=== PATIENT | male | born 1975 | race African-American/Black ===

== ENCOUNTER 2018-11-26 11:45 | Emergency (ER) | payer OTHER ==
--- NOTE | 2018-11-26 12:34 | ER Document Report ---
ED Medical Screen (RME) - General Chief Complaint: Bloody Stools Stated Complaint: BLOOD IN STOOL Time Seen by Provider: 11/26/18 12:31 Mode of Arrival: Ambulatory Information source: Patient Notes: 43-year-old male presented to ED for complaint of blood in his stools x3 since Friday. He states there was a little bit on Friday and on a lot more each day. He states today that was a lot. Patient has a history of kidney cancer with part of his left kidney removed. He has had a aortic aneurysm that was not repaired just use medication and he had to have a history of high blood pressure . He is alert oriented respirations regular and unlabored speaking in full sentences walks with a even steady gait. He states he does not smoke drink or drugs and lives with his family. I have greeted and performed a rapid initial assessment of this patient. A comprehensive ED assessment and evaluation of the patient, analysis of test results and completion of medical decision making process will be conducted by an additional ED providers. TRAVEL OUTSIDE OF THE [place] IN LAST 30 DAYS: No - Related Data Allergies/Adverse Reactions: No Known Allergies Allergy (Verified 11/26/18 11:47) Home Medications: HCTZ. ZOLOFT. CYCLOBENAZAPRIL. IRON. LOSATRTAN. CETIRIZINE. DOXYCYCLINE. HYDROCHLORATHIAZIDE. VIT D3. ASA. PROETHAZINE. COLACE. TRAZADONE Past Medical History - Social History Chew tobacco use (# tins/day): No Frequency of alcohol use: None Drug Abuse: None - Past Medical History Cardiac Medical History: Reports: Hx Hypertension Renal/ Medical History: Denies: Hx Peritoneal Dialysis Past Surgical History: Reports: Hx Kidney (Renal Surgery) - left sided partial removal Physical Exam - Vital signs Vitals: Temp Pulse Resp BP Pulse Ox 97.7 F 78 16 146/96 H 97 11/26/18 11:50 11/26/18 11:50 11/26/18 11:50 11/26/18 11:50 11/26/18 11:50 Course - Vital Signs Vital signs: Temp Pulse Resp BP Pulse Ox 97.7 F 78 16 146/96 H 97 11/26/18 11:50 11/26/18 11:50 11/26/18 11:50 11/26/18 11:50 11/26/18 11:50
[2018-11-26 13:12] LABS: ABSOLUTE BASOPHILS # (AUTO) 0.1 10^3/uL (0.0-0.2); ABSOLUTE EOSINOPHILS # (AUTO) 0.1 10^3/uL (0.0-0.6); ABSOLUTE MONOCYTES (AUTO) 0.5 10^3/uL (0.1-1.4); ABSOLUTE NEUT (AUTO) 3.5 10^3/uL (1.7-8.2); BASOPHILS % (AUTO) 0.7 % (0-2); EOSINOPHILS % (AUTO) 1.9 % (0-6); HEMATOCRIT 47.3 % (37.9-51.0); LYMPHOCYTES % (AUTO) 41.6 % (13-45); MEAN CORPUSCULAR HEMOGLOBIN 30.1 pg (27.0-33.4); MEAN CORPUSCULAR HGB CONC 33.9 g/dL (32.0-36.0); MEAN CORPUSCULAR VOLUME 89 fl (80-97); MONOCYTES % (AUTO) 7.1 % (3-13); PLATELET COUNT 192 10^3/uL (150-450); RED BLOOD COUNT 5.33 10^6/uL (4.35-5.55); RED CELL DISTRIBUTION WIDTH 13.9 % (11.5-14.0); SEGMENTED NEUTROPHILS % (AUTO) 48.7 % (42-78); TOTAL CELLS COUNTED % (AUTO) 100 %; WHITE BLOOD COUNT 7.3 10^3/uL (4.0-10.5)
[2018-11-26 13:14] LABS: APPEARANCE,URINE CLEAR; BILIRUBIN,URINE NEGATIVE (NEGATIVE); COLOR,URINE YELLOW; GLUCOSE, URINE NEGATIVE (NEGATIVE); KETONES,URINE NEGATIVE (NEGATIVE); LEUKOCYTE ESTERASE,URINE NEGATIVE (NEGATIVE); NITRITE,URINE NEGATIVE (NEGATIVE); PROTEIN,URINE NEGATIVE (NEGATIVE); URINE SPECIFIC GRAVITY 1.008; UROBILINOGEN,URINE NEGATIVE mg/dL (<2.0)
[2018-11-26 13:35] LABS: ALANINE AMINOTRANSFERASE 28 U/L (21-72); ALBUMIN 4.4 g/dL (3.5-5.0); ALKALINE PHOSPHATASE 62 U/L (38-126); ANION GAP 6 (5-19); ASPARTATE AMINO TRANSFERASE 32 U/L (17-59); BILIRUBIN,DIRECT 0.2 mg/dL (0.0-0.4); BILIRUBIN,TOTAL 0.5 mg/dL (0.2-1.3); BLOOD UREA NITROGEN 17 mg/dL (7-20); CALCIUM 10.1 mg/dL (8.4-10.2); CARBON DIOXIDE 29 mmol/L (22-30); CHLORIDE 105 mmol/L (98-107); GLUCOSE 79 mg/dL (75-110); SODIUM 140.4 mmol/L (137-145); TOTAL PROTEIN 7.9 g/dL (6.3-8.2)
[2018-11-26] MEDS ORDERED: NORMAL SALINE 1000 ML 1,000 ML IV ONE (15:12)
[2018-11-26 16:40] LABS: INTERNATIONAL RATION (INR) 0.95; PROTHROMBIN TIME 13.1 SEC (11.4-15.4)
[2018-11-26 16:41] LABS: PARTIAL THROMBOPLASTIN TIME 31.8 SEC (23.5-35.8)
[2018-11-26] MEDS ORDERED: DIPHENHYDRAMINE HCL 50 MG/ML VIAL IV ONE (16:49)
[2018-11-26] MEDS ORDERED: METOCLOPRAMIDE HCL INJ/PF 10 MG/2 ML SDV IV ONE (16:49)
--- NOTE | 2018-11-26 16:57 | ER Document Report ---
ED General - General Chief Complaint: Bloody Stools Stated Complaint: BLOOD IN STOOL Time Seen by Provider: 11/26/18 12:31 Primary Care Provider: ALEKSANDRA CONNER MD [ACTIVE STAFF] - Follow up in 3-5 days [facility] [Primary Care Provider] - Follow up as needed Mode of Arrival: Ambulatory TRAVEL OUTSIDE OF THE [place] IN LAST 30 DAYS: No - HPI Notes: Patient is a 43-year-old male that presents to the emergency department for chief complaint of blood in his stool. Patient reports for the last 3 days he has had bright red blood in his stool. He states he has 2 formed bowel movements daily. Each 1 has had streaks of bright red blood on the paper and in the toilet bowl. He states the stool also appears bright red. He denies any maroon or black stools. He reports some mild diffuse abdominal pain that is intermittent and crampy in nature. He denies associated fevers, nausea and vomiting. He does report decreased oral intake because of not feeling well. Patient states since onset of the bloody stools he is also had a headache. He describes it as a throbbing pressure that has associated photophobia. The pain is located around his right parietal region. He does report history of migraines in the past but states he gets them very rarely. He states this headache was gradual in onset and has been constant for the last 3 days. He did get some symptomatic relief at home after taking Tylenol yesterday. He denies any associated vision changes, numbness, weakness and neck stiffness patient states he has had about 6 colonoscopies in his li fetime and all have been normal or shown small polyps. He denies history of GI bleeding in the past. He denies being on anticoagulation currently. Past Medical History: Kidney cancer, PE, hypertension Past Surgical History: Left partial nephrectomy, appendectomy Social History: Denies tobacco and alcohol use Family History: Reviewed and noncontributory for presenting illness Allergies: Reviewed, see documented allergy list. REVIEW OF SYSTEMS: CONSTITUTIONAL : No fever No chills No diaphoresis No recent illness EENT: No vision changes No congestion No sore throat CARDIOVASCULAR: No chest pain No palpitations RESPIRATORY: No shortness of breath No cough No difficulty breathing GASTROINTESTINAL: abdominal pain No nausea No vomiting No diarrhea Bright red blood in stool GENITOURINARY: No dysuria No hematuria No difficulty urinating MUSCULOSKELETAL: No back pain No leg pain No arm pain SKIN: No rashes No lesions LYMPHATIC: No swollen, enlarged glands. NEUROLOGICAL: No lightheadedness headache No weakness No paresthesias PSYCHIATRIC: No anxiety No depression PHYSICAL EXAMINATION: Vital signs reviewed, nursing noted reviewed. GENERAL: Well-appearing, well-nourished and in no acute distress. HEAD: Atraumatic, normocephalic. EYES: Eyes appear normal, extraocular movements intact, sclera anicteric, conjunctiva are normal. ENT: nares patent, oropharynx clear without exudates. Moist mucous membranes. NECK: Normal range of motion, supple without lymphadenopathy LUNGS: Breath sounds clear to auscultation bilaterally and equal. No wheezes rales or rhonchi. HEART: Regular rate and rhythm without murmurs ABDOMEN: Soft, mild right lateral abdominal tenderness, normoactive bowel sounds. No rebound, guarding, or rigidity. No masses appreciated. EXTREMITIES: Nontender, good range of motion, no pitting or edema. NEUROLOGICAL: No focal neurological deficits. Moves all extremities spontaneously Motor and sensory grossly intact on exam. PSYCH: Normal mood, normal affect. SKIN: Warm, Dry, normal turgor, no rashes or lesions noted on exposed skin - Related Data Allergies/Adverse Reactions: No Known Allergies Allergy (Verified 11/26/18 11:47) Home Medications: HCTZ. ZOLOFT. CYCLOBENAZAPRIL. IRON. LOSATRTAN. CETIRIZINE. DOXYCYCLINE. HYDROCHLORATHIAZIDE. VIT D3. ASA. PROETHAZINE. COLACE. TRAZADONE Past Medical History - General Information source: Patient - Social History Smoking Status: Never Smoker Chew tobacco use (# tins/day): No Frequency of alcohol use: None Drug Abuse: None Family History: Reviewed & Not Pertinent Patient has suicidal ideation: No Patient has homicidal ideation: No - Past Medical History Cardiac Medical History: Reports: Hx Hypertension Renal/ Medical History: Denies: Hx Peritoneal Dialysis Past Surgical History: Reports: Hx Kidney (Renal Surgery) - left sided partial removal Physical Exam - Vital signs Vitals: Temp Pulse Resp BP Pulse Ox 97.7 F 78 16 146/96 H 97 11/26/18 11:50 11/26/18 11:50 11/26/18 11:50 11/26/18 11:50 11/26/18 11:50 Course - Re-evaluation Re-evalutation: 11/26/18 16:57 Vitals reviewed per nursing notes reviewed. Patient's abdomen is soft with some mild right-sided tenderness. He is status post appendectomy. Patient has no leukocytosis. He appears well-hydrated with normal kidney function and no electrolyte derangement. He is not anemic and has a stable hemoglobin. Patient does have a history of renal cancer and had been advised to have frequent colonoscopies to screen for further cancer. With his current presentation of bloody stools without diarrhea fevers or emesis I am concerned for possible malignant mass causing the bleeding. CT scan will be performed of his abdomen and pelvis today. Patient was also recommended that he needs colonoscopy in the near future. 11/26/18 18:[address] scan shows collapse of the colon distally with some proximal air. Patient has been able to pass bowel movements daily and has passed gas in the ER. He does not have symptoms of obstruction to suggest a stricture. Likely this was peristalsis. His abdominal exam is soft he has no left lower quadrant tenderness, he is still mildly tender on the right side. Patient was encouraged to follow with GI for outpatient colonoscopy. He was extensively counseled on return precautions and told to have a low threshold to return to the emergency room if the bleeding is continuing or worsening. He is in agreement with this plan of care and stable at discharge Laboratory 11/26/18 11/26/18 11/26/18 12:55 12:55 12:55 WBC 7.3 RBC 5.33 Hgb 16.0 Hct 47.3 MCV 89 MCH 30.1 MCHC 33.9 RDW 13.9 Plt Count 192 Seg Neutrophils % 48.7 Lymphocytes % 41.6 Monocytes % 7.1 Eosinophils % 1.9 Basophils % 0.7 Absolute Neutrophils 3.5 Absolute Lymphocytes 3.0 Absolute Monocytes 0.5 Absolute Eosinophils 0.1 Absolute Basophils 0.1 PT INR APTT Sodium 140.4 Potassium 4.0 Chloride 105 Carbon Dioxide 29 Anion Gap 6 BUN 17 Creatinine 1.07 Est GFR ( Amer) > 60 Est GFR (Non-Af Amer) > 60 Glucose 79 Calcium 10.1 Total Bilirubin 0.5 Direct Bilirubin 0.2 Neonat Total Bilirubin Not Reportable Neonat Direct Bilirubin Not Reportable Neonat Indirect Bili Not Reportable AST 32 ALT 28 Alkaline Phosphatase 62 Total Protein 7.9 Albumin 4.4 Urine Color YELLOW Urine Appearance CLEAR Urine pH 6.0 Ur Specific [place] 1.008 Urine Protein NEGATIVE Urine Glucose (UA) NEGATIVE Urine Ketones NEGATIVE Urine Blood NEGATIVE Urine Nitrite NEGATIVE Urine Bilirubin NEGATIVE Urine Urobilinogen NEGATIVE Ur Leukocyte Esterase NEGATIVE Urine WBC (Auto) 1 Urine Mucus (Auto) RARE Urine Ascorbic Acid NEGATIVE Blood Type Antibody Screen 11/26/18 11/26/18 15:50 15:50 WBC RBC Hgb Hct MCV MCH MCHC RDW Plt Count Seg Neutrophils % Lymphocytes % Monocytes % Eosinophils % Basophils % Absolute Neutrophils Absolute Lymphocytes Absolute Monocytes Absolute Eosinophils Absolute Basophils PT 13.1 INR 0.95 APTT 31.8 Sodium Potassium Chloride Carbon Dioxide Anion Gap BUN Creatinine Est GFR ( Amer) Est GFR (Non-Af Amer) Glucose Calcium Total Bilirubin Direct Bilirubin Neonat Total Bilirubin Neonat Direct Bilirubin Neonat Indirect Bili AST ALT Alkaline Phosphatase Total Protein Albumin Urine Color Urine Appearance Urine pH Ur Specific [place] Urine Protein Urine Glucose (UA) Urine Ketones Urine Blood Urine Nitrite Urine Bilirubin Urine Urobilinogen Ur Leukocyte Esterase Urine WBC (Auto) Urine Mucus (Auto) Urine Ascorbic Acid Blood Type A POSITIVE Antibody Screen NEGATIVE Abdomen/Pelvis CT 11/26/18 16:24 IMPRESSION: 1. No definite CT findings to explain left lower quadrant abdominal pain. The sigmoid colon is very redundant. There is a segment of narrowed appearing sigmoid colon approximately 3 cm in length with gas-filled colon proximally. There is stool distally in the rectum. Although this is likely peristaltic bowel, stricture can have this appearance. Correlate for clinical history of relevant disorder such as inflammatory bowel disease related to stricture. This can be further evaluated by direct colonoscopic visualization if desired. 2. Nonobstructive bilateral nephrolithiasis. - Vital Signs Vital signs: Temp Pulse Resp BP Pulse Ox 97.7 F 78 16 146/96 H 97 11/26/18 11:50 11/26/18 11:50 11/26/18 11:50 11/26/18 11:50 11/26/18 11:50 - Laboratory Result Diagrams: 11/26/18 12:55 11/26/18 12:55 Discharge - Discharge Clinical Impression: Blood in stool, pan Condition: Stable Disposition: HOME, SELF-CARE Instructions: Rectal Bleeding, Unclear Cause ([facility]) Additional Instructions: Return to the emergency room if your bleeding continues or worsens please return to the emergency department if you have any worsening, or concern of your symptoms. Please return to the emergency department if you develop chest pain, difficulty breathing, severe abdominal pain, or ongoing vomiting. Please follow-up with your primary care physician in 2-3 days and any other recommended physicians. If prescribed, take all medications as directed. If you have any questions or concerns do not hesitate to return the emergency department for evaluation. Follow-up with Dr. Conner for reevaluation and likely colonoscopy. Forms: Return to Work Referrals: [facility] [Primary Care Provider] - Follow up as needed ALEKSANDRA CONNER MD [ACTIVE STAFF] - Follow up in 3-5 days
--- NOTE | 2018-11-26 18:08 | RADIOLOGY REPORT (SQ) ---
EXAM DESCRIPTION: CT ABD/PELVIS WITH IV ONLY COMPLETED DATE/TIME: 11/26/2018 5:21 pm REASON FOR STUDY: abdominal pain COMPARISON: None. TECHNIQUE: CT scan of the abdomen and pelvis performed using helical scanning technique with dynamic intravenous contrast injection. No oral contrast. Images reviewed with lung, soft tissue, and bone windows. Reconstructed coronal and sagittal MPR images reviewed. Delayed images for evaluation of the urinary system also acquired. All images stored on PACS. All CT scanners at this facility use dose modulation, iterative reconstruction, and/or weight based d osing when appropriate to reduce radiation dose to as low as reasonably achievable (ALARA). [facility]: Dose Right [facility]: CareDose [facility]: Dose Right [facility]: Teradose 4D [facility]: [employer]™ CONTRAST TYPE AND DOSE: contrast/concentration: Isovue 350.00 mg/ml; Total Contrast Delivered: 94.0 ml; Total Saline Delivered: 71.0 ml RENAL FUNCTION: None required. The patient is less than 50 years old. RADIATION DOSE: CT Rad equipment meets quality standard of care and radiation dose reduction techniq ues were employed. CTDIvol: 6.6 - 9.1 mGy. DLP: 833 mGy-cm.. LIMITATIONS: None. FINDINGS: LOWER CHEST: No significant findings. No nodules or infiltrates. LIVER: Normal size. No masses. No dilated ducts. SPLEEN: Normal size. No focal lesions. PANCREAS: No masses. No significant calcifications. No adjacent inflammation or peripancreatic fluid collections. Pancreatic duct not dilated. GALLBLADDER: No identified stones by CT criteria. No inflammatory changes to suggest cholecystitis. ADRENAL GLANDS: No significant masses or asymmetry. RIGHT KIDNEY AND URETER: No solid masses. Nonobstructive calculus of the superior pole. No hydron ephrosis or hydroureter. LEFT KIDNEY AND URETER: No solid masses. Tiny nonobstructive calculus of the inferior pole. No hy dronephrosis or hydroureter. AORTA AND VESSELS: No aneurysm. No dissection. Renal arteries, SMA, celiac without stenosis. RETROPERITONEUM: No retroperitoneal adenopathy, hemorrhage or masses. BOWEL AND PERITONEAL CAVITY: No masses or inflammatory changes. No free fluid or peritoneal masses. The sigmoid colon is very redundant. There is a segment of narrowed appearing sigmoid colon approxim ately 3 cm in length (series 3, image 68) with gas filled colon proximally. There is stool distally in the rectum. APPENDIX: Surgically absent. PELVIS: No mass. No free fluid. Normal bladder. ABDOMINAL WALL: No masses. No hernias. BONES: No significant or acute findings. OTHER: No other significant finding. IMPRESSION: 1. No definite CT findings to explain left lower quadrant abdominal pain. The sigmoid colon is very redundant. There is a segment of narrowed appearing sigmoid colon approximately 3 cm i n length with gas-filled colon proximally. There is stool distally in the rectum. Although this is likely peristaltic bowel, stricture can have this appearance. Correlate for clinical history of rele vant disorder such as inflammatory bowel disease related to stricture. This can be further evaluated by direct colonoscopic visualization if desired. 2. Nonobstructive bilateral nephrolithiasis. TECHNICAL DOCUMENTATION: JOB ID: [id number] Quality ID # [id number]: Final reports with documentation of one or more dose reduction techniques (e.g., Au tomated exposure control, adjustment of the mA and/or kV according to patient size, use of iterative reconstruction technique) 2010 [employer]- All Rights Reserved Reading location - IP/workstation name: [email or web address]
[2018-11-26 19:42] VITALS: BP 152/103
== END 2018-11-26 19:42 | disposition home or self-care (01) ==
LOC: ER 11:45
DX: R19.5 Other fecal abnormalities (principal); R10.9 Unspecified abdominal pain; R63.0 Anorexia; R51 Headache
CPT/HCPCS: 99284; 96361; 96374; 96375; 86900; 86901; 36415; 86850; 85025; 85610; 85730; 80053; 81001; 74177; J1200; J2765; J7030

== ENCOUNTER 2019-06-03 14:25 | Emergency (ER) | payer OTHER ==
[2019-06-03] MEDS ORDERED: ASPIRIN 81 MG TABLET, CHEWABLE PO ONE (15:16)
--- NOTE | 2019-06-03 15:17 | ER Document Report ---
ED Medical Screen (RME) - General Chief Complaint: Chest Wall Pain Stated Complaint: SIDE PAIN Time Seen by Provider: 06/03/19 15:14 Primary Care Provider: YESY PARRA [Primary Care Provider] - Follow up as needed Mode of Arrival: Ambulatory Information source: Patient Notes: 43-year-old male presented to ED for complaint of chest pain or shortness of breath he was sent over here by [facility] due to history of blood clots and kidney cancer they requested CTA blood work and chest pain work-up. He states he had the pain for 3 days. Patient is alert oriented and respirations regular and unlabored speaking in full sentences at this time. Orders have been started. I have greeted and performed a rapid initial assessment of this patient. A comprehensive ED assessment and evaluation of the patient, analysis of test results and completion of medical decision making process will be conducted by an additional ED providers. TRAVEL OUTSIDE OF THE [place] IN LAST 30 DAYS: No - Related Data Allergies/Adverse Reactions: No Known Allergies Allergy (Verified 06/03/19 15:07) Past Medical History - Social History Chew tobacco use (# tins/day): No Frequency of alcohol use: None Drug Abuse: None - Past Medical History Cardiac Medical History: Reports: Hx Hypertension Neurological Medical History: Reports: Hx Migraine Endocrine Medical History: Reports: Hx Diabetes Mellitus Type 2 Renal/ Medical History: Denies: Hx Peritoneal Dialysis Past Surgical History: Reports: Hx Kidney (Renal Surgery) - micro-disection of left kidney Physical Exam - Vital signs Vitals: Temp Pulse Resp BP Pulse Ox 97.8 F 66 18 157/95 H 98 06/03/19 15:00 06/03/19 15:00 06/03/19 15:00 06/03/19 15:00 06/03/19 15:00 Course - Vital Signs Vital signs: Temp Pulse Resp BP Pulse Ox 97.8 F 66 18 157/95 H 98 06/03/19 15:00 06/03/19 15:00 06/03/19 15:00 06/03/19 15:00 06/03/19 15:00 Doctor's Discharge - Discharge Referrals: [facility],YESY [Primary Care Provider] - Follow up as needed
[2019-06-03 16:05] LABS: ABSOLUTE EOSINOPHILS # (AUTO) 0.1 10^3/uL (0.0-0.6); ABSOLUTE LYMPHOCYTES (AUTO) 3.4 10^3/uL (0.5-4.7); ABSOLUTE MONOCYTES (AUTO) 0.6 10^3/uL (0.1-1.4); ABSOLUTE NEUT (AUTO) 3.7 10^3/uL (1.7-8.2); BASOPHILS % (AUTO) 0.2 % (0-2); EOSINOPHILS % (AUTO) 1.1 % (0-6); HEMATOCRIT 46.1 % (37.9-51.0); HEMOGLOBIN 15.6 g/dL (13.5-17.0); LYMPHOCYTES % (AUTO) 43.8 % (13-45); MEAN CORPUSCULAR HEMOGLOBIN 29.6 pg (27.0-33.4); MEAN CORPUSCULAR HGB CONC 33.9 g/dL (32.0-36.0); MEAN CORPUSCULAR VOLUME 88 fl (80-97); MONOCYTES % (AUTO) 7.5 % (3-13); PLATELET COUNT 207 10^3/uL (150-450); RED BLOOD COUNT 5.27 10^6/uL (4.35-5.55); RED CELL DISTRIBUTION WIDTH 13.5 % (11.5-14.0); SEGMENTED NEUTROPHILS % (AUTO) 47.4 % (42-78); TOTAL CELLS COUNTED % (AUTO) 100 %; WHITE BLOOD COUNT 7.8 10^3/uL (4.0-10.5)
[2019-06-03 16:11] LABS: INTERNATIONAL RATION (INR) 0.98; PARTIAL THROMBOPLASTIN TIME 30.8 SEC (23.5-35.8)
[2019-06-03 16:20] LABS: ALBUMIN 4.3 g/dL (3.5-5.0); ALKALINE PHOSPHATASE 70 U/L (38-126); ANION GAP 8 (5-19); ASPARTATE AMINO TRANSFERASE 34 U/L (17-59); BILIRUBIN,TOTAL 0.4 mg/dL (0.2-1.3); BLOOD UREA NITROGEN 15 mg/dL (7-20); CALCIUM 9.7 mg/dL (8.4-10.2); CARBON DIOXIDE 28 mmol/L (22-30); CHLORIDE 103 mmol/L (98-107); CREATINE KINASE 286 U/L (55-170); GLUCOSE 96 mg/dL (75-110); POTASSIUM 3.9 mmol/L (3.6-5.0); TOTAL PROTEIN 7.7 g/dL (6.3-8.2)
[2019-06-03] MEDS ORDERED: MORPHINE SULFATE 10 MG/ML INJ IV ONE (16:21)
--- NOTE | 2019-06-03 16:22 | ER Document Report ---
ED General Pain - General Chief Complaint: Chest Wall Pain Stated Complaint: SIDE PAIN Time Seen by Provider: 06/03/19 15:14 Primary Care Provider: [facility] [Primary Care Provider] - Follow up as needed Mode of Arrival: Ambulatory TRAVEL OUTSIDE OF THE [place] IN LAST 30 DAYS: No - HPI Patient complains to provider of: cp/sob Onset: Other - Pt. with 3 day h/o L-sided CP and shortness of breath. He has a h/o PE but is currently not on blood thinners. He went to earlier this am and was sent here for further evaluation - Related Data Allergies/Adverse Reactions: No Known Allergies Allergy (Verified 06/03/19 15:07) Past Medical History - General Information source: Patient - Social History Smoking Status: Never Smoker Chew tobacco use (# tins/day): No Frequency of alcohol use: None Drug Abuse: None Family History: Reviewed & Not Pertinent Patient has suicidal ideation: No Patient has homicidal ideation: No - Past Medical History Cardiac Medical History: Reports: Hx Hypertension Neurological Medical History: Reports: Hx Migraine Endocrine Medical History: Reports: Hx Diabetes Mellitus Type 2 Renal/ Medical History: Denies: Hx Peritoneal Dialysis Past Surgical History: Reports: Hx Kidney (Renal Surgery) - micro-disection of left kidney Review of Systems - Review of Systems Constitutional: No symptoms reported EENT: No symptoms reported Cardiovascular: See HPI, Chest pain Respiratory: See HPI, Short of breath Gastrointestinal: No symptoms reported Musculoskeletal: No symptoms reported Neurological/Psychological: No symptoms reported -: Yes All other systems reviewed and negative Physical Exam - Vital signs Vitals: Temp Pulse Resp BP Pulse Ox 97.8 F 66 18 157/95 H 98 06/03/19 15:00 06/03/19 15:00 06/03/19 15:00 06/03/19 15:00 06/03/19 15:00 - General General appearance: Appears well In distress: None - Respiratory Respiratory status: No respiratory distress Chest status: Tender - there is min TTP of the L anterior CW diffusely Breath sounds: Normal - Cardiovascular Rhythm: Regular Heart sounds: Normal auscultation Murmur: No - Abdominal Inspection: Normal Distension: No distension Bowel sounds: Normal Tenderness: Nontender Organomegaly: No organomegaly - Extremities General upper extremity: Normal inspection General lower extremity: Normal inspection - Neurological Neuro grossly intact: Yes Cognition: Normal Orientation: AAOx4 Course - Re-evaluation Re-evalutation: 06/03/19 17:50 Pt. feels much better at time of d/c -- denies CP, SOB. Expressed desire to go home with - Vital Signs Vital signs: Temp Pulse Resp BP Pulse Ox 97.8 F 66 15 146/106 H 98 06/03/19 15:00 06/03/19 15:00 06/03/19 16:30 06/03/19 16:16 06/03/19 16:30 - Laboratory Result Diagrams: 06/03/19 15:35 06/03/19 15:35 Laboratory results interpreted by me: 06/03/19 15:35 Creatine Kinase 286 H - Diagnostic Test Radiology reviewed: Reports reviewed - CTA- neg for PE; cxr- neg - EKG Interpretation by Me EKG shows normal: Sinus rhythm Rate: Normal Rhythm: NSR - nsr without acute change Discharge - Discharge Clinical Impression: Chest pain Qualifiers: Chest pain type: unspecified Qualified Code(s): R07.9 - Chest pain, unspecified Condition: Stable Disposition: HOME, SELF-CARE Additional Instructions: rest, take meds as prescribed, return if worse Prescriptions: Tramadol HCl [Ultram] 50 mg PO BID #14 tablet Referrals: [facility] [Primary Care Provider] - Follow up as needed
[2019-06-03 16:32] LABS: APPEARANCE,URINE CLEAR; BILIRUBIN,URINE NEGATIVE (NEGATIVE); COLOR,URINE YELLOW; GLUCOSE, URINE NEGATIVE (NEGATIVE); KETONES,URINE NEGATIVE (NEGATIVE); LEUKOCYTE ESTERASE,URINE NEGATIVE (NEGATIVE); NITRITE,URINE NEGATIVE (NEGATIVE); PROTEIN,URINE NEGATIVE (NEGATIVE); UROBILINOGEN,URINE NEGATIVE mg/dL (<2.0)
[2019-06-03 16:48] LABS: CREATINE KINASE MB 0.86 ng/mL (<4.55); NT PRO BNP < 11 pg/mL (<125); TROPONIN I < 0.012 ng/mL
--- NOTE | 2019-06-03 17:14 | RADIOLOGY REPORT (SQ) ---
EXAM DESCRIPTION: CTA CHEST COMPLETED DATE/TIME: 06/03/2019 4:50 pm REASON FOR STUDY: chest pain hx clots and kidney cancer COMPARISON: None. TECHNIQUE: CT scan of the chest performed using helical scanning technique with dynamic intravenous contrast injection. Images reviewed with lung, soft tissue and bone windows. Reconstructed coronal and sagittal MPR images reviewed. Additional 3 dimensional post-processing performed to develop Maximal Intensity Projection images (IA P). All images stored on PACS. All CT scanners at this facility use dose modulation, iterative reconstruction, and/or weight based d osing when appropriate to reduce radiation dose to as low as reasonably achievable (ALARA). [facility]: Dose Right [facility]: CareDose [facility]: Dose Right [facility]: Teradose 4D [facility]: PFI Acquisition CONTRAST TYPE AND DOSE: 79 mL Omnipaque 350- low osmolar. Contrast bolus adequate for pulmonary arteries and aorta. RENAL FUNCTION: BUN 15 creatinine 1.13 RADIATION DOSE: . LIMITATIONS: None. FINDINGS: LUNGS AND PLEURA: No masses, infiltrates, or pneumothorax. No pleural effusions or pleura l calcifications. AORTA AND GREAT VESSELS: No aneurysm. No dissection. HEART: No pericardial effusion. No significant coronary artery calcifications. PULMONARY ARTERIES: No emboli visualized in the main pulmonary arteries or the segmental branches. HILAR AND MEDIASTINAL STRUCTURES: No identified masses or abnormal nodes. HARDWARE: None in the chest. UPPER ABDOMEN: No significant findings. Limited exam. THYROID AND OTHER SOFT TISSUES: Right lobe of thyroid gland is enlarged and heterogeneous. BONES: No acute or significant finding. 3D MIPS: Confirm above findings. OTHER: No other significant finding. IMPRESSION: 1. There is no pulmonary embolus. There is no aortic aneurysm or dissection. 2. Enlarged right lobe of the thyroid gland. Recommend thyroid ultrasound. COMMENT: Quality ID # 436: Final reports with documentation of one or more dose reduction techniques (e.g., Automated exposure control, adjustment of the mA and/or kV according to patient size, use of iterative reconstruction technique) TECHNICAL DOCUMENTATION: JOB ID: [id number] [employer]- All Rights Reserved Reading location - IP/workstation name: [email or web address]
--- NOTE | 2019-06-03 17:25 | RADIOLOGY REPORT (SQ) ---
EXAM DESCRIPTION: CHEST 2 VIEWS COMPLETED DATE/TIME: 06/03/2019 3:54 pm REASON FOR STUDY: chest pain hx clots and kidney cancer COMPARISON: PA and lateral views of the chest from 03/15/2019. EXAM PARAMETERS: NUMBER OF VIEWS: two views TECHNIQUE: Digital Frontal and Lateral radiographic views of the chest acquired. RADIATION DOSE: NA LIMITATIONS: none FINDINGS: LUNGS AND PLEURA: No consolidation, pleural effusion or pneumothorax. MEDIASTINUM AND HILAR STRUCTURES: No mediastinal or hilar contour abnormality. HEART AND VASCULAR STRUCTURES: The cardiac silhouette and pulmonary vasculature are within normal mckeon its. BONES: No acute findings. HARDWARE: None. OTHER: No other finding. IMPRESSION: No acute cardiopulmonary process. TECHNICAL DOCUMENTATION: JOB ID: [id number] [employer]- All Rights Reserved Reading location - IP/workstation name: [email or web address]
[2019-06-03 18:12] VITALS: BP 150/96
--- NOTE | 2019-06-03 20:18 | EKG REPORT ---
SEVERITY:- NORMAL ECG - SINUS RHYTHM : Confirmed by: Irma Green MD 03-Jun-2019 20:18:00
== END 2019-06-03 18:12 | disposition home or self-care (01) ==
LOC: ER 14:25
DX: R07.89 Other chest pain (principal); R06.02 Shortness of breath; I10 Essential (primary) hypertension; E11.9 Type 2 diabetes mellitus without complications; Z86.711 Personal history of pulmonary embolism
CPT/HCPCS: 93005; 99284; 96374; 36415; 82553; 82550; 83735; 85025; 85610; 85730; 80053; 81001; 84484; 83880; 71046; 71275; 93010; J2270

== ENCOUNTER 2019-06-10 09:37 | Emergency (ER) | payer OTHER ==
[2019-06-10 10:14] LABS: APPEARANCE,URINE CLEAR; BILIRUBIN,URINE NEGATIVE (NEGATIVE); COLOR,URINE YELLOW; GLUCOSE, URINE NEGATIVE (NEGATIVE); KETONES,URINE NEGATIVE (NEGATIVE); LEUKOCYTE ESTERASE,URINE NEGATIVE (NEGATIVE); NITRITE,URINE NEGATIVE (NEGATIVE); PROTEIN,URINE NEGATIVE (NEGATIVE); URINE SPECIFIC GRAVITY 1.027
--- NOTE | 2019-06-10 11:16 | ER Document Report ---
ED Medical Screen (RME) - General Chief Complaint: Back Pain Stated Complaint: LOWER BACK PAIN Time Seen by Provider: 06/10/19 11:02 Primary Care Provider: YESY PARRA [Primary Care Provider] - Follow up as needed Notes: Patient is a 43-year-old male with a history of pulmonary embolism and a right kidney tumor who presents to the emergency department with a chief complaint of the left "side" pain. Patient reports he was seen here on June 03 for the same. Patient reports at that time he was having some shortness of breath. Patient reports his testing was negative. Patient reports he was given Toradol and a muscle relaxer which he has been using but his pain is gotten worse. Patient reports he is having left side pain that radiates into the left flank. Patient reports he does have a history of a kidney tumor on the right side that was removed years ago with surgery. Patient reports he is having urinary frequency. Patient denies fever or abdominal pain. Patient denies injury, recent heavy lifting or fall. Patient states he is not currently on blood thinners but does take a baby aspirin daily. TRAVEL OUTSIDE OF THE [place] IN LAST 30 DAYS: No - Related Data Allergies/Adverse Reactions: No Known Allergies Allergy (Verified 06/10/19 09:50) Past Medical History - Social History Chew tobacco use (# tins/day): No Frequency of alcohol use: Occasional Drug Abuse: None - Past Medical History Cardiac Medical History: Reports: Hx Hypertension Neurological Medical History: Reports: Hx Migraine Endocrine Medical History: Reports: Hx Diabetes Mellitus Type 2 Renal/ Medical History: Denies: Hx Peritoneal Dialysis Past Surgical History: Reports: Hx Kidney (Renal Surgery) - micro-disection of left kidney Physical Exam - Vital signs Vitals: Temp Pulse Resp BP Pulse Ox 98.5 F 71 16 126/88 H 97 06/10/19 09:43 06/10/19 09:43 06/10/19 09:43 06/10/19 09:43 06/10/19 09:43 Course - Re-evaluation Re-evalutation: 06/10/19 11:16 I have greeted and performed a rapid initial assessment of this patient. A comprehensive ED assessment and evaluation of the patient, analysis of test results and completion of the medical decision making process will be conducted by additional ED providers. - Vital Signs Vital signs: Temp Pulse Resp BP Pulse Ox 98.5 F 71 16 126/88 H 97 06/10/19 09:43 06/10/19 09:43 06/10/19 09:43 06/10/19 09:43 06/10/19 09:43 - Laboratory Laboratory results interpreted by me: 06/10/19 10:02 Urine Urobilinogen 2.0 H Urine Ascorbic Acid 40 H Doctor's Discharge - Discharge Referrals: [facility] [[facility]] - Follow up as needed
[2019-06-10 11:51] LABS: ABSOLUTE EOSINOPHILS # (AUTO) 0.1 10^3/uL (0.0-0.6); ABSOLUTE LYMPHOCYTES (AUTO) 2.8 10^3/uL (0.5-4.7); ABSOLUTE MONOCYTES (AUTO) 0.4 10^3/uL (0.1-1.4); ABSOLUTE NEUT (AUTO) 2.5 10^3/uL (1.7-8.2); BASOPHILS % (AUTO) 0.4 % (0-2); EOSINOPHILS % (AUTO) 1.4 % (0-6); HEMATOCRIT 46.8 % (37.9-51.0); HEMOGLOBIN 16.1 g/dL (13.5-17.0); LYMPHOCYTES % (AUTO) 48.8 % (13-45); MEAN CORPUSCULAR HEMOGLOBIN 30.4 pg (27.0-33.4); MEAN CORPUSCULAR HGB CONC 34.3 g/dL (32.0-36.0); MEAN CORPUSCULAR VOLUME 89 fl (80-97); MONOCYTES % (AUTO) 6.8 % (3-13); PLATELET COUNT 172 10^3/uL (150-450); RED BLOOD COUNT 5.29 10^6/uL (4.35-5.55); RED CELL DISTRIBUTION WIDTH 13.5 % (11.5-14.0); SEGMENTED NEUTROPHILS % (AUTO) 42.6 % (42-78); TOTAL CELLS COUNTED % (AUTO) 100 %; WHITE BLOOD COUNT 5.8 10^3/uL (4.0-10.5)
[2019-06-10] MEDS ORDERED: HYDROCODONE/ACETAMINOPHEN 5-325 MG TABLET PO ONE (12:06)
[2019-06-10 12:12] LABS: ALBUMIN 4.5 g/dL (3.5-5.0); ALKALINE PHOSPHATASE 64 U/L (38-126); ANION GAP 9 (5-19); ASPARTATE AMINO TRANSFERASE 38 U/L (17-59); BILIRUBIN,DIRECT 0.1 mg/dL (0.0-0.4); BILIRUBIN,TOTAL 0.4 mg/dL (0.2-1.3); BLOOD UREA NITROGEN 15 mg/dL (7-20); CALCIUM 9.6 mg/dL (8.4-10.2); CARBON DIOXIDE 31 mmol/L (22-30); CHLORIDE 100 mmol/L (98-107); GLUCOSE 120 mg/dL (75-110); POTASSIUM 3.9 mmol/L (3.6-5.0); TOTAL PROTEIN 7.8 g/dL (6.3-8.2)
--- NOTE | 2019-06-10 12:52 | ER Document Report ---
ED General - General Chief Complaint: Back Pain Stated Complaint: LOWER BACK PAIN Time Seen by Provider: 06/10/19 11:02 Primary Care Provider: YENNY GALLEGOS MD [DANIELA ACKERMAN] - Follow up as needed [facility] [Primary Care Provider] - Follow up as needed Mode of Arrival: Ambulatory Information source: Patient TRAVEL OUTSIDE OF THE [place] IN LAST 30 DAYS: No - HPI Notes: 43-year-old male with a history of pulmonary embolism and a right kidney tumor in 2016 who presents to the emergency department with a chief complaint of the left "side" pain. Patient reports he was seen here on June 03 2019 for the same complaint but there was a concern for PE, workup was negative. . Patient reports he was given Toradol and a muscle relaxer which he has been using but his pain is gotten worse. Patient reports he is having left side pain that radiates into the left flank. Patient reports he does have a history of a kidney tumor on the right side that was removed years ago with surgery. Patient reports he is having urinary frequency. Patient denies fever or abdominal pain. Patient denies injury, recent heavy lifting or fall. Patient states he is not currently on blood thinners but does take a baby aspirin daily.Denies fevers, chills, chest pain,palpitations, shortness of breath, dyspnea, vomiting, diarrhea, abdominal pain, hematuria,blurred vision, double vision, loss of vision, speech changes, LH, dizziness, syncope, headaches, wheezing, ST, URI, neck pain, weakness, bowel or bladder dysfunction, saddle anesthesia, numbness or tingling in bilateral upper or lower extremities equally, muscle paralysis, w eakness in bilateral upper or lower extremities equally or rash. - Related Data Allergies/Adverse Reactions: No Known Allergies Allergy (Verified 06/10/19 09:50) Past Medical History - General Information source: Patient, Relative - Social History Smoking Status: Never Smoker Chew tobacco use (# tins/day): No Frequency of alcohol use: Occasional Drug Abuse: None Family History: Reviewed & Not Pertinent Patient has suicidal ideation: No Patient has homicidal ideation: No - Past Medical History Cardiac Medical History: Reports: Hx Hypertension Neurological Medical History: Reports: Hx Migraine Endocrine Medical History: Reports: Hx Diabetes Mellitus Type 2 Renal/ Medical History: Denies: Hx Peritoneal Dialysis Past Surgical History: Reports: Hx Kidney (Renal Surgery) - micro-disection of left kidney Review of Systems - Review of Systems Constitutional: No symptoms reported EENT: No symptoms reported Cardiovascular: No symptoms reported Respiratory: No symptoms reported Gastrointestinal: See HPI Genitourinary: No symptoms reported Male Genitourinary: No symptoms reported Musculoskeletal: No symptoms reported Skin: No symptoms reported Hematologic/Lymphatic: No symptoms reported Neurological/Psychological: No symptoms reported Physical Exam - Vital signs Vitals: Temp Pulse Resp BP Pulse Ox 98.5 F 71 16 126/88 H 97 06/10/19 09:43 06/10/19 09:43 06/10/19 09:43 06/10/19 09:43 06/10/19 09:43 - Notes Notes: PHYSICAL EXAMINATION:reviewed vital signs by RN GENERAL: Well-appearing, well-nourished and in no acute distress. HEAD: Atraumatic, normocephalic. EYES: Pupils equal round and reactive to light, extraocular movements intact, sclera anicteric, conjunctiva are normal. ENT: Nares patent, oropharynx clear without exudates. Moist mucous membranes. NECK: Normal range of motion, supple without lymphadenopathy LUNGS: Breath sounds clear to auscultation bilaterally and equal. No wheezes rales or rhonchi. HEART: Regular rate and rhythm without murmurs ABDOMEN: Soft, , nondistended abdomen. No guarding, no rebound. No masses appreciated. Left flank pain, left upper quadrant pain Musculoskeletal: Normal range of motion, no pitting or edema. No cyanosis. NEUROLOGICAL: Cranial nerves grossly intact. Normal speech, normal gait. Normal sensory, motor exams PSYCH: Normal mood, normal affect. SKIN: Warm, Dry, normal turgor, no rashes or lesions noted. Course - Re-evaluation Re-evalutation: 06/10/19 14:03 Afebrile, vitals stable, in mild distress. Nurse's notes reviewed. Renal ultrasound shows a 6 mm nonobstructive stone in left kidney. CBC negative for leukocytosis or anemia, CMP negative for hepatic or renal dysfunction, thyroid is 1.94. Patient was concerned about having thyroid mass, and previous CTA, did note date enlargement of his thyroid, ultrasound of his thyroid showed multiple right-sided thyroid nodules. The largest measures 3.9 x 2.6 x 3.1 cm. This corresponds to a TR for lesion and a fine-needle aspirate is recommended. The other 2 nodules corresponding to T3 lesions. Based on size continued surveillance is recommended. CMP negative for hepatic or renal dysfunction, no electrolyte disturbances. patient already has an established urologist in [place] due to having a right renal tumor resection in 2016, he does see him annually. A advised to follow-up with urologist regarding 6 mm nonobstructing renal stone. Will start patient on Flomax, ciprofloxacin, hydrocodone and Zofran for management of renal stone. Advised to increase oral hydration. After performing a Medical Screening Examination, I estimate there is LOW risk for ACUTE APPENDICITIS, BOWEL OBSTRUCTION, ACUTE CHOLECYSTITIS, PERFORATED DIVERTICULITIS, INCARCERATED HERNIA, PANCREATITIS, TESTICULAR TORSION or PERFORATED ULCER, thus I consider the discharge disposition reasonable. Also, there is no evidence or peritonitis, sepsis, or toxicity. I have reevaluated this patient multiple times and no significant life threatening changes are noted. The patient and I have discussed the diagnosis and risks, and we agree with discharging home with close follow-up with the understanding that symptoms and presentations can change. We also discussed returning to the Emergency Department immediately if new or worsening symptoms occur. We have discussed the symptoms which are most concerning (e.g., bloody stool, fever, changing or worsening pain, intractable vomiting - standard verbal up date) that necessitate immediate return. - Vital Signs Vital signs: Temp Pulse Resp BP Pulse Ox 98.5 F 71 16 126/88 H 97 06/10/19 09:43 06/10/19 09:43 06/10/19 09:43 06/10/19 09:43 06/10/19 09:43 - Laboratory Result Diagrams: 06/10/19 11:39 06/10/19 11:39 Laboratory results interpreted by me: 06/10/19 06/10/19 06/10/19 10:02 11:39 11:39 Lymph % (Auto) 48.8 H Carbon Dioxide 31 H Glucose 120 H Urine Urobilinogen 2.0 H Urine Ascorbic Acid 40 H Discharge - Discharge Clinical Impression: Left renal stone, Thyroid nodule Condition: Stable Disposition: HOME, SELF-CARE Instructions: Kidney Stone ([facility]), Pain Medication Injection ([facility]), Low Back Pain ([facility]), Oral Narcotic Medication ([facility]) Additional Instructions: Do not drive, drink or operate heavy machinery while taking medication cause sedation or impairment of cognitive function. Please take stool softeners to prevent constipation while taking hydrocodone's. Take medication as directed. If you experience any worsening symptoms, fever, weakness, severe pain. Please follow-up with urologist that you have [facility] established with for further evaluation and management of your renal stone. Please follow-up with your primary care provider for further evaluation of thyroid for fine-needle aspiration biopsy your thyroid is normal. Return immediately for any new or worsening symptoms. Follow up with primary care provider, call tomorrow to make followup appointment. Prescriptions: Hydrocodone/Acetaminophen [[place] 5-325 Tablet] 1 each PO Q6HP PRN #12 tablet PRN Reason: Ciprofloxacin HCl [Cipro 500 mg Tablet] 500 mg PO BID #20 tablet Tamsulosin HCl [Flomax 0.4 mg Cap.sr] 0.4 mg PO DAILY #7 cap.sr.24h Ondansetron [Zofran Odt 4 mg Tablet] 1 - 2 tab PO Q4H PRN #15 tab.rapdis PRN Reason: For Nausea/Vomiting Referrals: [facility] [Primary [facility]] - Follow up as needed YENNY GALLEGOS MD [DANIELA ACKERMAN] - Follow up as needed
--- NOTE | 2019-06-10 13:18 | RADIOLOGY REPORT (SQ) ---
EXAM DESCRIPTION: U/S RETROPERITON (RENAL/AORTA) COMPLETED DATE/TIME: 06/10/2019 12:41 pm REASON FOR STUDY: left flank pain, urinary frequency COMPARISON: None. TECHNIQUE: Dynamic and static grayscale images acquired of the kidneys and bladder and recorded on P ACS. Additional selected color Doppler and spectral images recorded. LIMITATIONS: None. FINDINGS: RIGHT KIDNEY: Normal size. Normal echogenicity. No solid or suspicious masses. No hydronep hrosis. Upper pole nonobstructing stone measuring 6 mm. LEFT KIDNEY: Normal size. Normal echogenicity. No solid or suspicious masses. Lower pole cyst measu ring 1.2 cm. No hydronephrosis. No calcifications. BLADDER: No masses. OTHER FINDINGS: No other significant finding. IMPRESSION: No hydronephrosis. Nonobstructing right upper pole 6 mm stone. TECHNICAL DOCUMENTATION: JOB ID: [id number] [employer]- All Rights Reserved Reading location - IP/workstation name: [email or web address]
[2019-06-10] MEDS ORDERED: KETOROLAC TROMETHAMINE INJ/PF 30 MG/1 ML SDV IV ONE (14:10)
--- NOTE | 2019-06-10 14:26 | RADIOLOGY REPORT (SQ) ---
EXAM DESCRIPTION: U/S THYROID/SFT TISS HD NECK COMPLETED DATE/TIME: 06/10/2019 2:07 pm REASON FOR STUDY: abnormal thyroid on scan COMPARISON: CT chest dated 06/03/2019 TECHNIQUE: Dynamic and static hernandez-scale images acquired of the thyroid gland. Selected additional c olor/power Doppler images recorded. All images stored to PACS. LIMITATIONS: None. FINDINGS: RIGHT LOBE: Normal size. The right lobe is heterogeneous in echotexture. There are multi ple solid nodules. The nodules are Iso to hyperechoic. The largest measures 3.9 x 2.6 x 3.1 cm. Al l appear to be wider than tall. LEFT LOBE: Normal size. Homogeneous echotexture. No cystic or solid masses. ISTHMUS: Normal size. Homogeneous echotexture. No cystic or solid masses. OTHER: No other significant finding. IMPRESSION: Multiple right-sided thyroid nodules. The largest measures 3.9 x 2.6 x 3.1 cm. This co rresponds to a TR 4 lesion and FNA is recommended. The other 2 nodules correspond to TR 3 lesions. Based on size continued surveillance is recommended. TECHNICAL DOCUMENTATION: JOB ID: [id number] [employer]- All Rights Reserved Reading location - IP/workstation name: [email or web address]
[2019-06-10] MEDS ORDERED: KETOROLAC TROMETHAMINE 60 MG/2 ML SDV ONE (15:27)
[2019-06-10] MEDS ORDERED: KETOROLAC TROMETHAMINE 60 MG/2 ML SDV IM ONE (15:28)
[2019-06-10 15:50] VITALS: BP 139/99
== END 2019-06-10 15:50 | disposition home or self-care (01) ==
LOC: ER 09:37
DX: N20.0 Calculus of kidney (principal); E04.1 Nontoxic single thyroid nodule; M54.5 Low back pain; I10 Essential (primary) hypertension; E11.9 Type 2 diabetes mellitus without complications; Z86.711 Personal history of pulmonary embolism; Z79.82 Long term (current) use of aspirin
CPT/HCPCS: 99284; 96372; 36415; 84443; 85025; 80053; 81001; 76770; 76536; J1885

== ENCOUNTER 2019-07-17 15:24 | Emergency (ER) | payer OTHER ==
[2019-07-17] MEDS ORDERED: OXYCODONE-ACETAMINOPHEN 5-325 MG TABLET PO ONE (15:42)
--- NOTE | 2019-07-17 15:44 | ER Document Report ---
ED Medical Screen (RME) - General Chief Complaint: Testicular Swelling Stated Complaint: TESTICULAR SWELLING Time Seen by Provider: 07/17/19 15:38 Primary Care Provider: AIDA,YESY [Primary Care Provider] - Follow up as needed Notes: Patient is a 43-year-old male with a history hypertension, type 2 diabetes, stage III kidney cancer with partial removal of the left kidney, pulmonary embolism presents to the emergency department with a chief complaint of left testicular swelling. Patient reports this has been present for 3 days with pain. He reports the pain is worse with movement. Patient states he is not any concern for sexually transmitted diseases. Patient states he has not had this happen before. Patient denies injury or trauma. Patient denies urinary symptoms. Patient reports he did have a pulmonary embolism 3 years ago after having his partial left kidney removed. Patient reports he is not currently on blood thinners and was cleared by his physician. TRAVEL OUTSIDE OF THE [place] IN LAST 30 DAYS: No - Related Data Allergies/Adverse Reactions: No Known Allergies Allergy (Verified 07/17/19 15:35) Past Medical History - Social History Chew tobacco use (# tins/day): No Frequency of alcohol use: None Drug Abuse: None - Past Medical History Cardiac Medical History: Reports: Hx Hypertension Neurological Medical History: Reports: Hx Migraine Endocrine Medical History: Reports: Hx Diabetes Mellitus Type 2 Renal/ Medical History: Denies: Hx Peritoneal Dialysis Past Surgical History: Reports: Hx Kidney (Renal Surgery) - micro-disection of left kidney Physical Exam - Vital signs Vitals: Temp Pulse BP Pulse Ox 98.3 F 66 136/90 H 99 07/17/19 15:27 07/17/19 15:27 07/17/19 15:27 07/17/19 15:27 Course - Re-evaluation Re-evalutation: 07/17/19 15:44 Patient will require ultrasound. He states his is driving, will give a dose of pain medication prior to ultrasound. Will obtain a urinalysis. I have greeted and performed a rapid initial assessment of this patient. A comprehensive ED assessment and evaluation of the patient, analysis of test results and completion of the medical decision making process will be conducted by additional ED providers. - Vital Signs Vital signs: Temp Pulse Resp BP Pulse Ox 98.3 F 66 136/90 H 99 07/17/19 15:35 07/17/19 15:27 07/17/19 15:27 07/17/19 15:35 Doctor's Discharge - Discharge Referrals: [facility] [[facility]] - Follow up as needed
[2019-07-17 16:02] LABS: APPEARANCE,URINE CLEAR; BILIRUBIN,URINE NEGATIVE (NEGATIVE); COLOR,URINE YELLOW; GLUCOSE, URINE NEGATIVE (NEGATIVE); KETONES,URINE NEGATIVE (NEGATIVE); LEUKOCYTE ESTERASE,URINE NEGATIVE (NEGATIVE); NITRITE,URINE NEGATIVE (NEGATIVE); PROTEIN,URINE NEGATIVE (NEGATIVE); URINE SPECIFIC GRAVITY 1.019; UROBILINOGEN,URINE NEGATIVE mg/dL (<2.0)
--- NOTE | 2019-07-17 17:08 | ER Document Report ---
ED General - General Chief Complaint: Testicular Swelling Stated Complaint: TESTICULAR SWELLING Time Seen by Provider: 07/17/19 15:38 Primary Care Provider: AIDA,YESY [Primary Care Provider] - Follow up as needed TRAVEL OUTSIDE OF THE [place] IN LAST 30 DAYS: No - HPI Notes: Patient is a 43-year-old male who presents complaining of left testicular swelling and pain for the past 3 days that is been constant. Pain does not radiate. Patient has been able to eat and drink without difficulty. He is urinating normally and having normal bowel movements. He has not had this pain before. He does have a medical history of hypertension, diabetes type 2, and left renal cancer status post partial nephrectomy and has been in remission for 3 years. He has no concern of STD or STI. Denies drug allergies. Denies any headache, fever, neck pain, URI, sore throat, chest pain, palpitations, syncope, cough, shortness of breath, wheeze, dyspnea, abdominal pain, nausea/vomiting/diarrhea, urinary retention, dysuria, hematuria, back pain, or rash. - Related Data Allergies/Adverse Reactions: No Known Allergies Allergy (Verified 07/17/19 15:35) Past Medical History - Social History Smoking Status: Never Smoker Chew tobacco use (# tins/day): No Frequency of alcohol use: None Drug Abuse: None Family History: Reviewed & Not Pertinent Patient has suicidal ideation: No Patient has homicidal ideation: No - Past Medical History Cardiac Medical History: Reports: Hx Hypertension Neurological Medical History: Reports: Hx Migraine Endocrine Medical History: Reports: Hx Diabetes Mellitus Type 2 Renal/ Medical History: Denies: Hx Peritoneal Dialysis Past Surgical History: Reports: Hx Kidney (Renal Surgery) - micro-disection of left kidney Review of Systems - Review of Systems -: Yes All other systems reviewed and negative Physical Exam - Vital signs Vitals: Temp Pulse BP Pulse Ox 98.3 F 66 136/90 H 99 07/17/19 15:27 07/17/19 15:27 07/17/19 15:27 07/17/19 15:27 - Notes Notes: PHYSICAL EXAMINATION: GENERAL: Well-appearing, well-nourished and in no acute distress. HEAD: Atraumatic, normocephalic. EYES: Pupils equal round and reactive to light, extraocular movements intact, sc kuldip anicteric, conjunctiva are normal. ENT: Nares patent and without discharge. oropharynx clear without exudates. No tonsilar hypertrophy or erythema. Moist mucous membranes. NECK: Normal range of motion, supple without lymphadenopathy LUNGS: Breath sounds clear to auscultation bilaterally and equal. No wheezes rales or rhonchi. HEART: Regular rate and rhythm without murmurs, rubs, gallops. ABDOMEN: Soft, nontender, nondistended abdomen. No guarding, no rebound. Normal bowel sounds present. No CVA tenderness bilaterally. : + mild swelling noted left testicle with tenderness associated to that area. There is no erythema, ecchymosis, rash, necrosis noted. There is no urethral discharge or obvious inguinal hernia. Nontender to palpation of the inguinal area or penis. No obvious transverse testicular lie. Cremasterics intact bilaterally. Musculoskeletal: FROM to passive/active. Strength 5+/5. Extremities: No cyanosis, clubbing, or edema b/l. Peripheral pulses 2+. Capillary refill less than 3 seconds. NEUROLOGICAL: Normal speech, normal gait. PSYCH: Normal mood, normal affect. SKIN: Warm, Dry, normal turgor, no rashes or lesions noted. Course - Re-evaluation Re-evalutation: 07/17/19 18:33 Patient is an afebrile, well-hydrated, 43-year-old male who presents with left epididymitis, suspect inflammatory as primary but infectious still in differential. Vitals are acceptable without significant tachycardia, tachypnea, or hypoxia. Patient is nontoxic-appearing and is tolerating p.o. without difficulty. Labs are acceptable at this time. Chlamydia gonorrhea tests are pending, but patient elected not to have any medicines at this time. He is aware that he may need to return with any positive testing. Ultrasound does show epididymitis without evidence of torsion. No further work-up warranted. Low suspicion/risk for acute appendicitis, bowel obstruction, acute cholecysti tis, perforated diverticulitis, incarcerated hernia, pancreatitis, perforated ulcer, peritonitis, sepsis, testicular torsion, gangrene, or other systemic emergent condition at this time. Patient is aware that his condition can change from initial presentation and he needs to monitor symptoms closely and seek medical attention if any acute changes. Conservative measures otherwise for symptoms. Recheck with PCM in 2-3 days. Schedule consult with Urology. Return to the ED with any worsening/concerning symptoms otherwise as reviewed in discharge. Patient is in agreement. - Vital Signs Vital signs: Temp Pulse Resp BP Pulse Ox 98.3 F 66 136/90 H 99 07/17/19 15:35 07/17/19 15:27 07/17/19 15:27 07/17/19 15:35 - Laboratory Laboratory results interpreted by me: 07/17/19 15:45 Urine Blood SMALL H Discharge - Discharge Clinical Impression: Left epididymitis Condition: Stable Disposition: HOME, SELF-CARE Instructions: Epididymitis ([facility]), Doxycycline ([facility]) Additional Instructions: Supportive underwear Push fluids (i.e. water, cranberry juice) Proper hygenic technique Keep the skin clean Tylenol/ibuprofen as needed Take medications as directed F/u with your PCM in 3-5 days for a recheck Schedule consult with a Urologist. Return to the ED with any worsening symptoms and/or development of fever, headache, chest pain, palpitations, syncope, shortness of breath, trouble breathing, abdominal pain, n/v/d, blood in stool/urine, loss of control of bowel/bladder, urinary retention, or other worsening symptoms that are concerning to you. Prescriptions: Doxycycline Hyclate 100 mg PO BID #20 capsule Ibuprofen [Motrin 800 mg Tablet] 800 mg PO Q8H PRN #15 tab PRN Reason: Forms: Elevated Blood Pressure [facility]errals: [facility] [[facility]] - Follow up as needed [facility] [Provider Group] - Follow up in 3-5 days
[2019-07-17 17:42] LABS: CHLAM PCR NOT DETECTED (NOT DETECT)
--- NOTE | 2019-07-17 17:53 | RADIOLOGY REPORT (SQ) ---
EXAM DESCRIPTION: U/S SCROTUM W/DOPPLER COMPLETED DATE/TIME: 07/17/2019 4:35 pm REASON FOR STUDY: reports left testicular pain and swelling x 3 days COMPARISON: None. TECHNIQUE: Static and realtime hernandez scale imaging of the scrotum and testes. Selected color Doppler and spectral images recorded to document blood flow. LIMITATIONS: None. FINDINGS: RIGHT: TESTICLE: Normal size. Normal echotexture. Normal blood flow. No mass. EPIDIDYMIS: Normal. HYDROCELE OR VARICOCELE: Small varicocele. No hydrocele. HERNIA OR EXTRA-TESTICULAR MASS: No. OTHER: No other significant finding. LEFT: TESTICLE: Normal size. Normal echotexture. Normal blood flow. No mass. EPIDIDYMIS: Slightly enlarged heterogeneous left epididymis. HYDROCELE OR VARICOCELE: No varicocele. Small hydrocele. HERNIA OR EXTRA-TESTICULAR MASS: No. OTHER: No other significant finding. IMPRESSION: Slightly enlarged heterogeneous left epididymis.. NO EVIDENCE OF TESTICULAR MASS OR TORS ION. TECHNICAL DOCUMENTATION: JOB ID: [id number] [employer]- All Rights Reserved Reading location - IP/workstation name: [email or web address]
[2019-07-17 18:58] VITALS: BP 133/90
== END 2019-07-17 18:58 | disposition home or self-care (01) ==
LOC: ER 15:24
DX: N45.1 Epididymitis (principal); N50.89 Other specified disorders of the male genital organs; N50.812 Left testicular pain; I10 Essential (primary) hypertension; E11.9 Type 2 diabetes mellitus without complications; Z85.53 Personal history of malignant neoplasm of renal pelvis; Z98.890 Other specified postprocedural states
CPT/HCPCS: 76870; 81001; 87491; 87591; 93976; 99284

== ENCOUNTER 2019-09-03 14:55 | Emergency (ER) | payer OTHER ==
[2019-09-03 15:34] VITALS: BP 147/90
[2019-09-03] MEDS ORDERED: TETRACAINE HCL 0.5% OPH SOLN 4 ML OS ONE (15:54)
--- NOTE | 2019-09-03 15:58 | ER Document Report ---
HPI - HPI Patient complains to provider of: left eye irritation Time Seen by Provider: 09/03/19 15:46 Onset: Other - 3 weeks Onset/Duration: Persistent Pain Level: 4 Context: 43-year-old male presents emergency department with complaints of left eye irritation. Reports he has had this irritation for the past 3 weeks. [facility] He has been treated with antibiotic drops and ointment. He reports he still using eye ointment after 2 weeks. He does not remember what the name of the ointment was. He reports environmental safety specialist said there was nothing wrong with his eye. Patient complains of clear drainage with eye irritation. Denies problems with his vision. Denies trauma. Patient wears glasses does not wear contacts. Denies other symptoms cho ch as fever vomiting diarrhea Associated Symptoms: None Exacerbated by: Denies Relieved by: Denies Similar symptoms previously: Yes Recently seen / treated by doctor: Yes - EENT EENT: REPORTS: Eye problems - REPRODUCTIVE Reproductive: DENIES: : Past Medical History - General Information source: Patient - Social History Smoking Status: Never Smoker Chew tobacco use (# tins/day): No Frequency of alcohol use: None Drug Abuse: None Family History: Reviewed & Not Pertinent Patient has suicidal ideation: No Patient has homicidal ideation: No - Past Medical History Cardiac Medical History: Reports: Hx Hypertension Neurological Medical History: Reports: Hx Migraine Endocrine Medical History: Reports: Hx Diabetes Mellitus Type 2 Renal/ Medical History: Denies: Hx Peritoneal Dialysis Malignancy Medical History: Reports Hx Renal (Kidney) Cancer Psychiatric Medical History: Reports: Hx Post Traumatic Stress Disorder Past Surgical History: Reports: Hx Kidney (Renal Surgery) - micro-disection of left kidney Vertical Provider Document - CONSTITUTIONAL Agree With Documented VS: Yes Exam Limitations: No Limitations General Appearance: WD/WN, No Apparent Distress - INFECTION CONTROL TRAVEL OUTSIDE OF THE [place] IN LAST 30 DAYS: No - HEENT HEENT: Atraumatic, Conjuctival Injection - left eye, Normocephalic, PERRLA - NECK Neck: Normal Inspection, Supple - RESPIRATORY Respiratory: Breath Sounds Normal, No Respiratory Distress - CARDIOVASCULAR Cardiovascular: Regular Rate, Regular Rhythm - MUSCULOSKELETAL/EXTREMETIES Musculoskeletal/Extremeties: MAEW, FROM, Non-Tender - NEURO Level of Consciousness: Awake, Alert, Appropriate Motor/Sensory: No Motor Deficit - DERM Integumentary: Warm, Dry Course - Re-evaluation Re-evalutation: 09/03/19 17:04 Patient presents emergency department with left eye irritation. Reports [facility] in the [facility] twice for symptoms. He reports he was just seen at [facility] on the but was treated for something else. He reports he forgot to mention his left eye. He reports he has been taking some time but ointment that they gave him for the past 2 weeks and is not relieved above the symptoms. He reports environmental safety specialist told him there was nothing wrong with his eye. Corneal abrasion noted. Patient was instructed on the importance of monitoring the site and the importance of follow-up with it security specialist for recheck within the next week. He was treated with Polytrim while here because he is still using the ointment prescribed by [facility] 2 weeks ago. He was instructed to quit the ointment and start the Polytrim. He was also instructed on the importance of follow-up with it security specialist for recheck and return here for any worsening symptoms, change in vision, concerns he verbalized understanding to all instructions - Vital Signs Vital signs: Temp Pulse Resp BP Pulse Ox 97.9 F 75 16 147/90 H 95 09/03/19 15:27 09/03/19 15:27 09/03/19 15:27 09/03/19 15:27 09/03/19 15:27 Procedures - Eye Procedure Left Time completed: 16:21 Eye Irrigated w/ Saline (ccs): 20 Alcaine Drops Administered: Yes - tetracaine Fluorescein applied: Left Slit lamp used: No Notes: 09/03/19 16:21 scott lamp utilized, + corneal abrasion Eyes picture: 1 - corneal abrasion noted Discharge - Discharge Clinical Impression: Irritation of left eye Corneal abrasion Qualifiers: Encounter type: initial encounter Laterality: left Qualified Code(s): S05.02XA - Injury of conjunctiva and corneal abrasion without foreign body, left eye, initial encounter Condition: Stable Disposition: HOME, SELF-CARE Instructions: Corneal Abrasion ([facility]) Additional Instructions: *You have been evaluated for eye irritation, corneal abrasion *Use eye drops as prescribed- polytrim- 1 drop, four times per day for five days *Good hand washing- Do not reuse wash clothes or towels after wiping eyes *[facility] to an [facility] security specialist within 1 week *Return to ED for worsening condition, changes, needs, eye pain, redness swelling, decreased vision, concerns [facility]: [facility] [[facility]] - Follow up in 3-5 days
[2019-09-03] MEDS ORDERED: POLYMYXIN B SULFATE/TMP OPH SOLN (10 ML/ER DISP) OS PRN (16:24)
== END 2019-09-03 17:00 | disposition home or self-care (01) ==
LOC: ER 14:55
DX: S05.02XA Injury of conjunctiva and corneal abrasion without foreign body, left eye, initial encounter (principal); H57.12 Ocular pain, left eye; I10 Essential (primary) hypertension; X58.XXXA Exposure to other specified factors, initial encounter; E11.9 Type 2 diabetes mellitus without complications
CPT/HCPCS: 99283; J3490 ×2

== ENCOUNTER 2019-12-02 11:36 | Emergency (ER) | payer OTHER ==
[2019-12-02] MEDS ORDERED: NORMAL SALINE 1000 ML 1,000 ML IV ONE (11:47)
--- NOTE | 2019-12-02 11:49 | ER Document Report ---
ED Medical Screen (RME) - General Chief Complaint: Chest Pain Stated Complaint: CHEST PAIN with throwing up blood Time Seen by Provider: 12/02/19 11:46 Primary Care Provider: YESY PARRA [Primary Care Provider] - Follow up as needed Mode of Arrival: Ambulatory Information source: Patient Notes: 44-year-old male presented to ED for complaint of chest pain x3 days. He started throwing up blood last night and threw up blood again today with a lot of blood. He states he is very weak hardly able to stand up on his feet. He is alert and oriented at this time. He is able to answer questions appropriately. I have greeted and performed a rapid initial assessment of this patient. A comprehensive ED assessment and evaluation of the patient, analysis of test resu lts and completion of medical decision making process will be conducted by an additional ED providers. TRAVEL OUTSIDE OF THE [place] IN LAST 30 DAYS: No - Related Data Allergies/Adverse Reactions: No Known Allergies Allergy (Verified 07/17/19 15:35) Past Medical History - Past Medical History Cardiac Medical History: Reports: Hx Hypertension Neurological Medical History: Reports: Hx Migraine Endocrine Medical History: Reports: Hx Diabetes Mellitus Type 2 Renal/ Medical History: Denies: Hx Peritoneal Dialysis Malignancy Medical History: Reports Hx Renal (Kidney) Cancer Psychiatric Medical History: Reports: Hx Post Traumatic Stress Disorder Past Surgical History: Reports: Hx Kidney (Renal Surgery) - micro-disection of left kidney Doctor's Discharge - Discharge Referrals: AIDA,YESY [Primary Care Provider] - Follow up as needed
[2019-12-02] MEDS ORDERED: NITROGLYCERIN 0.4 MG/TAB 25 TAB/BOTTLE SL PRN (12:01)
[2019-12-02 12:02] LABS: ALCOHOL < 10 mg/dL (NONE DETECTED)
[2019-12-02 12:06] LABS: ABSOLUTE EOSINOPHILS # (AUTO) 0.1 10^3/uL (0.0-0.6); ABSOLUTE LYMPHOCYTES (AUTO) 2.2 10^3/uL (0.5-4.7); ABSOLUTE MONOCYTES (AUTO) 0.3 10^3/uL (0.1-1.4); ABSOLUTE NEUT (AUTO) 3.1 10^3/uL (1.7-8.2); BASOPHILS % (AUTO) 0.5 % (0-2); EOSINOPHILS % (AUTO) 1.7 % (0-6); HEMATOCRIT 44.6 % (37.9-51.0); HEMOGLOBIN 15.7 g/dL (13.5-17.0); LYMPHOCYTES % (AUTO) 38.8 % (13-45); MEAN CORPUSCULAR HGB CONC 35.2 g/dL (32.0-36.0); MEAN CORPUSCULAR VOLUME 88 fl (80-97); MONOCYTES % (AUTO) 5.6 % (3-13); PLATELET COUNT 173 10^3/uL (150-450); RED BLOOD COUNT 5.07 10^6/uL (4.35-5.55); RED CELL DISTRIBUTION WIDTH 13.7 % (11.5-14.0); SEGMENTED NEUTROPHILS % (AUTO) 53.4 % (42-78); TOTAL CELLS COUNTED % (AUTO) 100 %; WHITE BLOOD COUNT 5.8 10^3/uL (4.0-10.5)
[2019-12-02] MEDS ORDERED: MORPHINE SULFATE 10 MG/ML INJ IV ONE (12:08)
--- NOTE | 2019-12-02 12:14 | ER Document Report ---
ED General - General Chief Complaint: Chest Pain Stated Complaint: CHEST PAIN with throwing up blood Time Seen by Provider: 12/02/19 11:46 Primary Care Provider: AIDA,YESY [Primary Care Provider] - Follow up as needed Mode of Arrival: Ambulatory Notes: 44-year-old man presents to the emergency department with a complaint of chest pain. He rates the pain 8/10 and states he has been having intermittent episodes of chest pain over the past few days. He was diagnosed with H. pylori last week. He also had episode of vomiting with bright red blood. He denies, vomiting at this time. He also denies dizziness or lightheadedness, no syncope or associated fever. Complains of shortness of breath at this time. TRAVEL OUTSIDE OF THE [place] IN LAST 30 DAYS: No - Related Data Allergies/Adverse Reactions: No Known Allergies Allergy (Verified 07/17/19 15:35) Past Medical History - General Information source: Patient - Social History Smoking Status: Never Smoker Chew tobacco use (# tins/day): No Frequency of alcohol use: None Drug Abuse: None Family History: Reviewed & Not Pertinent Patient has suicidal ideation: No Patient has homicidal ideation: No - Past Medical History Cardiac Medical History: Reports: Hx Hypertension Neurological Medical History: Reports: Hx Migraine Endocrine Medical History: Reports: Hx Diabetes Mellitus Type 2 Renal/ Medical History: Denies: Hx Peritoneal Dialysis Malignancy Medical History: Reports Hx Renal (Kidney) Cancer Psychiatric Medical History: Reports: Hx Post Traumatic Stress Disorder Past Surgical History: Reports: Hx Kidney (Renal Surgery) - micro-disection of left kidney Review of Systems - Review of Systems Notes: Constitutional: + Fatigue HENT: Negative for sore throat. Eyes: Negative for visual changes. Cardiovascular: + Chest pain. Respiratory: Negative for shortness of breath. Gastrointestinal: Negative for abdominal pain, vomiting or diarrhea. Genitourinary: Negative for dysuria. Musculoskeletal: Negative for back pain. Skin: Negative for rash. Neurological: Negative for headaches, weakness or numbness. 10 point ROS negative except as marked above and in HPI. Physical Exam - Vital signs Vitals: Temp 97.8 F 12/02/19 11:36 - Notes Notes: PHYSICAL EXAMINATION: Physical Exam: General: Well-nourished well-developed 44-year-old man in no acute distress HEENT: NC/AT, pupils equal round and reactive to light, MM moist,nares clear, oropharynx clear, airway patent Neck: supple, no adenopathy, no masses. Good range of motion Lungs: clear, no wheezing, no rales no rhonchi CVS: Regular rate and rhythm no murmur gallop or rub Abdomen: Soft, active, nontender, no masses, no hepatosplenomegaly Ext: No edema, clubbing or cyanosis. Neuro: Alert and responsive, moving all 4 extremities on command, cranial nerves intact, no focal findings Skin: Intact no open lesions, no rash PSYCH: Normal mood, normal affect. Course - Re-evaluation Re-evalutation: 12/02/19 15:28 Evaluation of the patient's chest discomfort reveals a EKG which is normal, chest x-ray clear, cardiac enzymes negative and unresponsiveness to sublingual nitroglycerin or GI cocktail. Patient does have atypical chest pain, apparently seen by his primary care doctor he was treated for H. pylori I have asked him that he could complete the medications for that condition and then follow-up with his primary care doctor regarding the symptom complex. I reassured him that this does not look like CAD or acute vascular obstruction. - Vital Signs Vital signs: Temp Pulse Resp BP Pulse Ox 97.8 F 15 130/98 H 99 12/02/19 14:01 12/02/19 14:01 12/02/19 14:01 12/02/19 14:01 - Laboratory Result Diagrams: 12/02/19 11:07 12/02/19 11:07 Laboratory results interpreted by me: 12/02/19 11:07 Glucose 182 H - Diagnostic Test Radiology reviewed: Image reviewed, Reports reviewed - Chest x-ray: Normal cardiac silhouette, no acute infiltrates or effusion. - EKG Interpretation by Md EKG shows normal: Sinus rhythm - Normal sinus rhythm rate of 79, no acute ST or T wave abnormalities interpretation: Normal electrocardiogram, Discharge - Discharge Clinical Impression: Atypical chest pain, H pylori ulcer Condition: Good Disposition: HOME, SELF-CARE Instructions: Helicobacter Pylori Treatment ([facility]), Helicobacter Infection ([facility]) Additional Instructions: You are seen in the emergency department today and evaluated for chest pain, your chest pain does not appear to be cardiac in origin, I suggest that you complete the treatment of H. pylori and the medications which you were given. Following up with your physician for further outpatient evaluation and treatment as necessary would be the next step. If your symptoms are worsening or if you have other concerns you may return to the emergency department for further evaluation and treatment HOME CARE INSTRUCTIONS & INFORMATION: Thank you for choosing us for your medical needs. We hope you're satisfied with the care you received. After you leave, you must properly care for your problem and, at the same time, observe its progress. Any condition can change. Some illnesses can change rapidly over hours or days. If your condition worsens, return to the Emergency Department or see your physician promptly. ABOUT YOUR X-RAYS AND EKG'S: If you had an EKG or X-rays taken, they have been read by the Emergency Physician. The X-rays and EKG's will also be read by a Radiologist or Control Supervisor within 24 hours. If discrepancies are noted, you will be notified by telephone. Please be certain the ED has a correct telephone number & address where you can be reached. Also, realize that some fractures or abnormalities do not show up on initial X-rays. If your symptoms continue, see your physician. ABOUT YOUR LABORATORY TEST: If you had laboratory tests, the results have been reviewed by the Emergency Physician. Some test results (for example cultures) may not be available for several days. You will be contacted if any test result shows you need additional treatment. Please be certain the ED has a correct telephone number and address where you can be reached. ABOUT YOUR MEDICATIONS: You will receive instructions on how to take your medicine on the prescription label you receive. Additional information may be provided by the Pharmacy. If you have questions afterwards, call the ED for clarification or further instructions. Some prescribed medications may cause drowsiness. Do not perform tasks such as driving a car or operating machinery without consulting your Pharmacist. If you feel you need a refill of pain medication, your condition will need re-evaluation. Please do not call for a r efill of any medication. ABOUT YOUR SIGNATURE: Signature of this document acknowledges to followin. Understanding that you received emergency treatment and that you may be released before al medical problems are known or treated. Please be certain the ED has a correct phone number & address where you can be reached. 2. Acknowledgement that you will arrange for follow-up care as recommended. 3. Authorization for the Emergency Physician to provide information to your follow-up Physician in order to maximize your care. AT ANY TIME, IF YOUR SYMPTOMS CHANGE SIGNIFICANTLY OR WORSEN OR YOU DEVELOP NEW SYMPTOMS, RETURN TO THE EMERGENCY DEPARTMENT IMMEDIATELY FOR RE-EVALUATION. OUR GOAL IS TO PROVIDE EXCELLENT MEDICAL CARE! WE HOPE THAT WE HAVE MET YOUR EXPECTATIONS DURING YOUR EMERGENCY DEPARTMENT VISIT AND THAT YOU FEEL YOU HAVE RECEIVED EXCELLENT CARE! [facility] [[facility] - Follow up as needed
--- NOTE | 2019-12-02 13:42 | RADIOLOGY REPORT (SQ) ---
EXAM DESCRIPTION: CHEST 2 VIEWS IMAGES COMPLETED DATE/TIME: 12/02/2019 1:12 pm REASON FOR STUDY: Pain chest COMPARISON: 06/03/2019 EXAM PARAMETERS: NUMBER OF VIEWS: two views TECHNIQUE: Digital Frontal and Lateral radiographic views of the chest acquired. RADIATION DOSE: NA LIMITATIONS: none FINDINGS: LUNGS AND PLEURA: No opacities, masses or pneumothorax. No pleural effusion. MEDIASTINUM AND HILAR STRUCTURES: No masses or contour abnormalities. HEART AND VASCULAR STRUCTURES: Heart normal size. No evidence for failure. BONES: No acute findings. HARDWARE: None in the chest. OTHER: No other significant finding. IMPRESSION: NO ACUTE RADIOGRAPHIC FINDING IN THE CHEST. TECHNICAL DOCUMENTATION: JOB ID: [id number] 2010 [employer]- All Rights Reserved Reading location - IP/workstation name: [email or web address]
[2019-12-02] MEDS ORDERED: MAG HYDROX/AL HYDROX/SIMETH SUSP 30 ML UDCUP PO ONE (14:05)
[2019-12-02] MEDS ORDERED: METOCLOPRAMIDE HCL ORAL SOLN 10 MG/10 ML UDCUP PO ONE (14:05)
[2019-12-02] MEDS ORDERED: LIDOCAINE 2% VISCOUS SOLN 15 ML UDCUP PO ONE (14:05)
[2019-12-02 14:15] LABS: ALBUMIN 4.4 g/dL (3.5-5.0); ALKALINE PHOSPHATASE 65 U/L (38-126); ANION GAP 11 (5-19); ASPARTATE AMINO TRANSFERASE 32 U/L (17-59); BILIRUBIN,DIRECT 0.1 mg/dL (0.0-0.4); BILIRUBIN,TOTAL 0.5 mg/dL (0.2-1.3); BLOOD UREA NITROGEN 14 mg/dL (7-20); CALCIUM 9.3 mg/dL (8.4-10.2); CARBON DIOXIDE 23 mmol/L (22-30); CHLORIDE 103 mmol/L (98-107); GLUCOSE 182 mg/dL (75-110); POTASSIUM 4.6 mmol/L (3.6-5.0); TOTAL PROTEIN 7.7 g/dL (6.3-8.2)
[2019-12-02 14:51] LABS: APPEARANCE,URINE CLEAR; BILIRUBIN,URINE NEGATIVE (NEGATIVE); COLOR,URINE STRAW; GLUCOSE, URINE NEGATIVE (NEGATIVE); KETONES,URINE NEGATIVE (NEGATIVE); PROTEIN,URINE NEGATIVE (NEGATIVE); URINE SPECIFIC GRAVITY 1.009; UROBILINOGEN,URINE NEGATIVE mg/dL (<2.0)
[2019-12-02 15:07] LABS: URINE AMPHETAMINES SCREEN NEGATIVE; URINE BARBITURATES SCREEN NEGATIVE; URINE BENZODIAZEPINES SCREEN NEGATIVE; URINE COCAINE SCREEN NEGATIVE; URINE MARIJUANA (THC) SCREEN NEGATIVE; URINE METHADONE SCREEN NEGATIVE; URINE PHENCYCLIDINE SCREEN NEGATIVE
[2019-12-02 16:25] VITALS: BP 141/95
--- NOTE | 2019-12-03 | EKG REPORT ---
SEVERITY:- NORMAL ECG - SINUS RHYTHM : Confirmed by: Amy Bonilla 02-Dec-2019 23:59:40
== END 2019-12-02 16:31 | disposition home or self-care (01) ==
LOC: ER 11:36
DX: B96.81 Helicobacter pylori [H. pylori] as the cause of diseases classified elsewhere (principal); K25.9 Gastric ulcer, unspecified as acute or chronic, without hemorrhage or perforation; R07.89 Other chest pain; K92.0 Hematemesis; R06.02 Shortness of breath; R53.83 Other fatigue; I10 Essential (primary) hypertension; E11.9 Type 2 diabetes mellitus without complications
CPT/HCPCS: 93005; 99285; 96361; 96374; 86900; 86901; 36415; 86850; 80307 ×2; 83690; 85025; 80053; 81001; 84484; 71046; 93010; J3490; J2270; J7030

== ENCOUNTER 2020-01-16 20:02 | Emergency (ER) | payer OTHER ==
[2020-01-16 20:10] VITALS: BP 173/105
[2020-01-16] MEDS ORDERED: FAMOTIDINE 20 MG TABLET PO ONE (20:42)
[2020-01-16] MEDS ORDERED: DIPHENHYDRAMINE HCL 25 MG CAPSULE PO ONE (20:42)
--- NOTE | 2020-01-16 20:49 | ER Document Report ---
HPI - HPI Time Seen by Provider: 01/16/20 20:32 Pain Level: Denies Notes: Patient is a 44-year-old male presenting to the emergency department chief complaint of concern for allergic reaction. Patient was discharged from [facility] on Friday for what he describes as spinal inflammation. He states while he was in the hospital he was receiving IV steroids daily. He states when he went home they started him on oral steroids. He believes he is having an allergic reaction to the oral steroids because he has a rash to his bilateral arms and chest. He denies any difficulty swallowing, difficulty speaking or sore throat. He denies any allergies previous to this. - REPRODUCTIVE Reproductive: DENIES: : Past Medical History - General Information source: Patient - Social History Smoking Status: Never Smoker Frequency of alcohol use: None Family History: Reviewed & Not Pertinent Patient has homicidal ideation: No - Past Medical History Cardiac Medical History: Reports: Hx Hypertension Neurological Medical History: Reports: Hx Migraine Endocrine Medical History: Reports: Hx Diabetes Mellitus Type 2 Renal/ Medical History: Denies: Hx Peritoneal Dialysis Malignancy Medical History: Reports Hx Renal (Kidney) Cancer Psychiatric Medical History: Reports: Hx Post Traumatic Stress Disorder Past Surgical History: Reports: Hx Kidney (Renal Surgery) - micro-disection of left kidney Vertical Provider Document - CONSTITUTIONAL Notes: PHYSICAL EXAMINATION: GENERAL: Well-appearing, well-nourished and in no acute distress. HEAD: Atraumatic, normocephalic. No lip swelling. EYES: Pupils equal round extraocular movements intact, conjunctiva are normal. ENT: Nares patent, airway patent, no obvious erythema or edema. NECK: Normal range of motion LUNGS: No respiratory distress, lung sounds clear and equal bilaterally. Musculoskeletal: Normal range of motion NEUROLOGICAL: Normal speech, normal gait. PSYCH: Normal mood, normal affect. SKIN: Warm, Dry, normal turgor, scattered maculopapular rash to patient's bilateral arms and chest. - INFECTION CONTROL TRAVEL OUTSIDE OF THE [place] IN LAST 30 DAYS: No Course - Re-evaluation Re-evalutation: Patient appears well, nontoxic, vital signs within normal limits. Patient is not having an anaphylactic reaction. Patient does have a scattered maculopapular rash, no hives. Will advise patient to stop taking the oral steroids that were prescribed by his provider and start taking Benadryl and Pepcid. Due to the reasoning behind him being on the steroids I have advised him to call his provider tomorrow morning to discuss with them other options as he may need to be on steroids of a different type. Patient verbalized understanding and agreement with this plan. - Vital Signs Vital signs: Temp Pulse Resp BP Pulse Ox 98.5 F 77 18 173/105 H 99 01/16/20 20:32 01/16/20 20:08 01/16/20 20:08 01/16/20 20:08 01/16/20 20:08 Discharge - Discharge Clinical Impression: Allergic reaction Qualifiers: Encounter type: initial encounter Qualified Code(s): T78.40XA - Allergy, unspecified, initial encounter Condition: Stable Disposition: HOME, SELF-CARE Additional Instructions: Please take Pepcid 40 mg twice daily and Benadryl 50 mg every 6 hours. You can purchase both of these [id number]. Start taking them tomorrow morning. Please do not take your steroid for the next few days, follow-up with either your primary care provider or your provider at [facility] as they may want to restart you on some type of steroid for your back inflammation that you originally placed on it for. Return to the emergency department with any new or worsening symptoms to include difficulty swallowing, scratchy throat or any other concerns. [facility]errals: [facility] [[facility]] - Follow up as needed
== END 2020-01-16 21:15 | disposition home or self-care (01) ==
LOC: ER 20:02
DX: T78.40XA Allergy, unspecified, initial encounter (principal); R21 Rash and other nonspecific skin eruption; I10 Essential (primary) hypertension; E11.9 Type 2 diabetes mellitus without complications
CPT/HCPCS: 99283

== ENCOUNTER 2020-01-26 20:02 | Emergency (ER) | payer OTHER ==
[2020-01-26] MEDS ORDERED: NORMAL SALINE 1000 ML 1,000 ML IV ONE (20:28)
--- NOTE | 2020-01-26 20:32 | ER Document Report ---
ED Medical Screen (RME) - General Chief Complaint: High Blood Sugar Stated Complaint: HIGH BLOOD SUGAR Time Seen by Provider: 01/26/20 20:24 Primary Care Provider: AIDA,YESY [Primary Care Provider] - Follow up as needed Mode of Arrival: Ambulatory Information source: Patient Notes: HPI;-year-old male past medical history significant for [id number]-kflurmxiv diabetes, PE, kidney cancer, transverse myelitis presents emergency room stating that his blood sugar tonight was reading greater than 500. States he has been on prednisone for about 10 to 12 days for the transverse myelitis. Today is the first day that is noticed his blood sugar that high. States they have been running in the high 200s has been taking his metformin as prescribed. Offers no other complaints. PE: Alert and oriented x3. Mild distress noted. Lungs: Clear to auscultation without rales rhonchi wheezes. Heart: Regular rate rhythm without murmurs rubs or gallops I have greeted and performed a rapid initial assessment of this patient. A comprehensive ED assessment and evaluation of the patient, analysis of test results and completion of the medical decision making process will be conducted by additional ED providers. I have specifically instructed the patient or family members with the patient to immediately return to any nursing staff should anything change in the patient's condition or with their chief complaint. TRAVEL OUTSIDE OF THE [place] IN LAST 30 DAYS: No - Related Data Allergies/Adverse Reactions: No Known Allergies Allergy (Verified 01/26/20 20:24) Past Medical History - Past Medical History Cardiac Medical History: Reports: Hx Hypertension Neurological Medical History: Reports: Hx Migraine Endocrine Medical History: Reports: Hx Diabetes Mellitus Type 2 Renal/ Medical History: Denies: Hx Peritoneal Dialysis Malignancy Medical History: Reports Hx Renal (Kidney) Cancer Psychiatric Medical History: Reports: Hx Post Traumatic Stress Disorder Past Surgical History: Reports: Hx Kidney (Renal Surgery) - micro-disection of left kidney Doctor's Discharge - Discharge [facility]errals: [facility] - Follow up as needed
[2020-01-26 22:16] LABS: ABSOLUTE LYMPHOCYTES (AUTO) 2.3 10^3/uL (0.5-4.7); ABSOLUTE MONOCYTES (AUTO) 0.8 10^3/uL (0.1-1.4); ABSOLUTE NEUT (AUTO) 8.8 10^3/uL (1.7-8.2); BASOPHILS % (AUTO) 0.3 % (0-2); EOSINOPHILS % (AUTO) 0.2 % (0-6); HEMOGLOBIN 14.8 g/dL (13.5-17.0); LYMPHOCYTES % (AUTO) 19.4 % (13-45); MEAN CORPUSCULAR HEMOGLOBIN 30.1 pg (27.0-33.4); MEAN CORPUSCULAR HGB CONC 33.6 g/dL (32.0-36.0); MEAN CORPUSCULAR VOLUME 89 fl (80-97); MONOCYTES % (AUTO) 6.8 % (3-13); PLATELET COUNT 193 10^3/uL (150-450); RED BLOOD COUNT 4.92 10^6/uL (4.35-5.55); RED CELL DISTRIBUTION WIDTH 14.5 % (11.5-14.0); SEGMENTED NEUTROPHILS % (AUTO) 73.3 % (42-78); TOTAL CELLS COUNTED % (AUTO) 100 %
[2020-01-26 22:24] LABS: AMORPHOUS SEDIMENT,URINE TRACE /HPF; APPEARANCE,URINE SLIGHTLY-CLOUDY; BILIRUBIN,URINE NEGATIVE (NEGATIVE); COLOR,URINE YELLOW; GLUCOSE, URINE >=500 mg/dL (NEGATIVE); KETONES,URINE NEGATIVE (NEGATIVE); LEUKOCYTE ESTERASE,URINE NEGATIVE (NEGATIVE); NITRITE,URINE NEGATIVE (NEGATIVE); PROTEIN,URINE NEGATIVE (NEGATIVE); URINE SPECIFIC GRAVITY 1.022; UROBILINOGEN,URINE NEGATIVE mg/dL (<2.0)
[2020-01-26 22:41] LABS: ALBUMIN 4.4 g/dL (3.5-5.0); ALKALINE PHOSPHATASE 84 U/L (38-126); ANION GAP 7 (5-19); ASPARTATE AMINO TRANSFERASE 28 U/L (17-59); BILIRUBIN,TOTAL 0.4 mg/dL (0.2-1.3); BLOOD UREA NITROGEN 13 mg/dL (7-20); CALCIUM 9.7 mg/dL (8.4-10.2); CARBON DIOXIDE 28 mmol/L (22-30); CHLORIDE 100 mmol/L (98-107); GLUCOSE 237 mg/dL (75-110); POTASSIUM 4.3 mmol/L (3.6-5.0); TOTAL PROTEIN 7.6 g/dL (6.3-8.2)
[2020-01-27] MEDS ORDERED: INSULIN REG, HUMAN 100 UNIT/ML 3 ML VIAL (PYX) SUBCUT ONE (00:14)
[2020-01-27] MEDS ORDERED: GABAPENTIN 300 MG CAPSULE PO ONE (00:16)
--- NOTE | 2020-01-27 00:26 | ER Document Report ---
ED General - General Chief Complaint: High Blood Sugar Stated Complaint: HIGH BLOOD SUGAR Time Seen by Provider: 01/26/20 20:24 Primary Care Provider: AIDA,YESY [Primary Care Provider] - Follow up as needed Mode of Arrival: Ambulatory Notes: 44-year-old male presents emergency department complaining of elevated blood sugar. Patient states he has been on prednisone for approximately the past 12 days for transverse myelitis, he is supposed to be on it for 2 more days. Patient is normally diet-controlled type II diabetic. States that when he was in the hospital they were giving him insulin but since discharge she has not had any medications for his elevated blood sugar. States that his blood sugars have slowly been creeping up at home, yesterday was 280, today was 343 and then just prior to arrival it was greater than 500. Patient denies any new symptoms aside from urinary frequency. Denies fevers, denies dysuria, denies increasing weakness, states his weakness is actually improving. Does state his back pain has been worsening since sitting in our chairs and/or beds this evening. States he missed his usual evening dose of gabapentin 900 mg and would like to have it here. TRAVEL OUTSIDE OF THE [place] IN LAST 30 DAYS: No - Related Data Allergies/Adverse Reactions: No Known Allergies Allergy (Verified 01/26/20 20:24) Past Medical History - General Information source: Patient - Social History Smoking Status: Former Smoker Frequency of alcohol use: None Drug Abuse: None Family History: Reviewed & Not Pertinent Patient has homicidal ideation: No - Past Medical History Cardiac Medical History: Reports: Hx Hypertension Neurological Medical History: Reports: Hx Migraine Endocrine Medical History: Reports: Hx Diabetes Mellitus Type 2 Renal/ Medical History: Denies: Hx Peritoneal Dialysis Malignancy Medical History: Reports Hx Renal (Kidney) Cancer Psychiatric Medical History: Reports: Hx Post Traumatic Stress Disorder Past Surgical History: Reports: Hx Kidney (Renal Surgery) - micro-disection of l eft kidney Review of Systems - Review of Systems Constitutional: No symptoms reported Genitourinary: See HPI, Frequency Musculoskeletal: See HPI, Back pain -: Yes All other systems reviewed and negative Physical Exam - Vital signs Vitals: Temp 98.8 F 01/26/20 20:25 Interpretation: Normal - Notes Notes: GENERAL: Alert, interacts well. No acute distress. HEAD: Normocephalic, atraumatic EYES: Pupils equal, round and reactive to light, extraocular movements intact. ENT: Oral mucosa moist, tongue midline. NECK: Full range of motion, supple, trachea midline. LUNGS: Clear to auscultation bilaterally, no wheezes, rales or rhonchi, no respiratory distress. HEART: Regular rate and rhythm, no murmurs, gallops, rubs. ABDOMEN: Soft, nontender, nondistended, bowel sounds present in all 4 quadrants. NEUROLOGICAL: Alert and oriented x3, normal speech. PSYCH: Normal mood, normal affect. SKIN: Warm, Dry, normal turgor. Course - Re-evaluation Re-evalutation: 01/27/20 00:27 CBC shows slight leukocytosis of 12.0, CMP shows mild hyponatremia at 134.8, glucose elevated at 237, urinalysis shows glucose but no signs of infection. Patient's glucose is elevated because he has been on prednisone for the past 12 days. He has 2 more days left. Discussed with patient that I think the best course of action is for him to just increase his water intake and try to exercise a little bit more even if it means walking with a cane however patient is quite uncomfortable with his blood sugar spiking to 500. I did discuss that we could start him on very low-dose short acting insulin. We will do teaching here on how to administer insulin. He has had it in the hospital previously. I did order 2 units of insulin to treat his blood sugar of 237 however it is now 147 after he is been waiting in the emergency department so we believe saline to teach the subcu injections. Patient is aware of the risks of glycemia, he has been warned of the signs. Patient is being given a very low sliding scale. Discharged home. 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 Shortly after you stop using steroids you should see your blood sugars normalize. Please check your blood sugar 4 times a day, just before each meal and just before bedtime. If your blood sugar is greater than 200 then give yourself 2 units of insulin, greater than 300 give yourself 3 units of insulin, greater than 400 give yourself 4 units of insulin, greater than 5 units give yourself 5 units of insulin. If your glucometer reads high please return to the emergency department. Please also return to the emergency department for fever, confusion, sweating or difficulty talking. Prescriptions: Insulin Regular, Human [Novolin R Flexpen] See Protocol SQ ACHS #1 [email or web address] Referrals: [facility] [Primary Care Provider] - Follow up as needed
[2020-01-27 01:05] VITALS: BP 150/107
== END 2020-01-27 01:05 | disposition home or self-care (01) ==
LOC: ER 20:02
DX: E09.65 Drug or chemical induced diabetes mellitus with hyperglycemia (principal); T38.0X5A Adverse effect of glucocorticoids and synthetic analogues, initial encounter; I10 Essential (primary) hypertension; Z85.528 Personal history of other malignant neoplasm of kidney
CPT/HCPCS: 36415; 80053; 81001; 82962; 85025; 99284

== ENCOUNTER 2020-03-08 00:25 | Emergency (ER) | payer OTHER ==
[2020-03-08] MEDS ORDERED: HYDROMORPHONE HCL INJ/PF 2 MG/ML AMPULE IM ONE (01:34)
[2020-03-08] MEDS ORDERED: KETOROLAC TROMETHAMINE 60 MG/2 ML SDV IM ONE (01:34)
[2020-03-08] MEDS ORDERED: METHOCARBAMOL 750 MG TABLET PO ONE (01:34)
--- NOTE | 2020-03-08 02:25 | RADIOLOGY REPORT (SQ) ---
CT lumbar spine without contrast on 03/08/2020 at 1:53 AM CLINICAL INDICATION: Low back pain TECHNIQUE: Multiple axial images are obtained throughout the lumbar spine without the administration of contrast. Sagittal and coronal reformatted images are also performed and reviewed. This exam was performed according to our departmental dose-optimization program, which includes automated exposure control, adjustment of the mA and/or kV according to patient size and/or use of iterative reconstruction technique. Total DLP is 598.24 mGy*cm. COMPARISON: None FINDINGS: Reformatted images reveal normal alignment of the lumbar spine. There are no acute fracture lines. There is a 4-5 mm nonobstructing right renal stone. No definite disc herniation is noted. No level of canal stenosis or foraminal narrowing is noted. IMPRESSION: 1. No acute abnormality in the lumbar spine. 2. Right nephrolithiasis.
--- NOTE | 2020-03-08 02:27 | RADIOLOGY REPORT (SQ) ---
CT thoracic spine without contrast on 03/08/2020 at 2:00 AM CLINICAL INDICATION: Back pain TECHNIQUE: Multiple axial images are obtained throughout the thoracic spine without the administration of contrast. Sagittal and coronal reformatted images are also performed and reviewed. This exam was performed according to our departmental dose-optimization program, which includes automated exposure control, adjustment of the mA and/or kV according to patient size and/or use of iterative reconstruction technique. Total DLP is 672.89 mGy*cm. COMPARISON: 06/03/2019 FINDINGS: Reformatted images reveal normal alignment of the thoracic spine. There are no acute fracture lines. No definite disc herniation is noted. No level of canal stenosis or foraminal narrowing is noted. There are trace bilateral pleural effusions. No other bony or soft tissue abnormality is noted. IMPRESSION: No acute abnormality in the thoracic spine.
--- NOTE | 2020-03-08 02:57 | ER Document Report ---
ED Medical Screen (RME) - General Chief Complaint: Back Pain Stated Complaint: FLANK PAIN Time Seen by Provider: 03/08/20 01:26 Primary Care Provider: YESY PARRA [Primary Care Provider] - Follow up as needed Mode of Arrival: Wheelchair Information source: Patient Notes: 44-year-old male patient presents emergency department chief complaint of back pain. Patient reports longstanding history of back pain, states this feels worse than usual. He states it is in the middle to low back and radiates down his right side. He does have a history of kidney stones, states this feels different. He is currently seeing neurology and a nuclear medicine specialist to figure out what is causing his chronic back pain. He denies any saddle anesthesia, denies any loss of control bowel or bladder function denies any urinary retention. Tenderness to palpation in the thoracic and lumbar region, no vertebral step-off or deformity. I have greeted and performed a rapid initial assessment of this patient. A comprehensive ED assessment and evaluation of the patient, analysis of test results and completion of the medical decision making process will be conducted by additional ED providers. I have specifically instructed the patient or family members with the patient to immediately return to any nursing staff should anything change in the patient's condition or with their chief complaint. TRAVEL OUTSIDE OF THE [place] IN LAST 30 DAYS: No - Related Data Allergies/Adverse Reactions: No Known Allergies Allergy (Verified 03/08/20 00:59) Home Medications: Gabapentin. oxycodone Past Medical History - Past Medical History Cardiac Medical History: Reports: Hx Hypertension Neurological Medical History: Reports: Hx Migraine Endocrine Medical History: Reports: Hx Diabetes Mellitus Type 2 Renal/ Medical History: Denies: Hx Peritoneal Dialysis Malignancy Medical History: Reports Hx Renal (Kidney) Cancer Psychiatric Medical History: Reports: Hx Post Traumatic Stress Disorder Past Surgical History: Reports: Hx Kidney (Renal Surgery) - micro-disection of left kidney Physical Exam - Vital signs Vitals: Temp Pulse Resp BP Pulse Ox 98.1 F 61 20 179/99 H 96 03/08/20 00:42 03/08/20 00:42 03/08/20 00:42 03/08/20 00:42 03/08/20 00:42 Course - Vital Signs Vital signs: Temp Pulse Resp BP Pulse Ox 98.1 F 61 20 179/99 H 96 03/08/20 00:42 03/08/20 00:42 03/08/20 00:42 03/08/20 00:42 03/08/20 00:42 Doctor's Discharge - Discharge Referrals: [facility] [Primary [facility]] - Follow up as needed
[2020-03-08 03:22] LABS: APPEARANCE,URINE CLEAR; BILIRUBIN,URINE NEGATIVE (NEGATIVE); CALCIUM OXALATE CRYSTALS,URINE FEW /HPF; COLOR,URINE YELLOW; GLUCOSE, URINE NEGATIVE (NEGATIVE); KETONES,URINE NEGATIVE (NEGATIVE); LEUKOCYTE ESTERASE,URINE NEGATIVE (NEGATIVE); NITRITE,URINE NEGATIVE (NEGATIVE); PROTEIN,URINE NEGATIVE (NEGATIVE); URINE SPECIFIC GRAVITY 1.029; UROBILINOGEN,URINE NEGATIVE mg/dL (<2.0)
[2020-03-08 04:57] VITALS: BP 150/99
--- NOTE | 2020-03-08 05:03 | ER Document Report ---
HPI - HPI Time Seen by Provider: 03/08/20 01:26 Pain Level: 5 Notes: 44-year-old male patient presents emergency department chief complaint of back pain. Patient reports longstanding history of back pain, states this feels worse than usual. He states it is in the middle to low back and radiates down his right side. He does have a history of kidney stones, states this feels different. He is currently seeing neurology and a cardiac exercise specialist to figure out what is causing his chronic back pain. He denies any saddle anesthesia, denies any loss of control bowel or bladder function denies any urinary retention. - ROS Systems Reviewed and Negative: Yes All other systems reviewed and negative - REPRODUCTIVE Reproductive: DENIES: : - MUSCULOSKELETAL Musculoskeletal: REPORTS: Back Pain Past Medical History - General Information source: Patient - Social History Smoking Status: Never Smoker Family History: Reviewed & Not Pertinent Patient has homicidal ideation: No - Past Medical History Cardiac Medical History: Reports: Hx Hypertension Neurological Medical History: Reports: Hx Migraine Endocrine Medical History: Reports: Hx Diabetes Mellitus Type 2 Renal/ Medical History: Denies: Hx Peritoneal Dialysis Malignancy Medical History: Reports Hx Renal (Kidney) Cancer Psychiatric Medical History: Reports: Hx Post Traumatic Stress Disorder Past Surgical History: Reports: Hx Kidney (Renal Surgery) - micro-disection of left kidney Vertical Provider Document - CONSTITUTIONAL Notes: PHYSICAL EXAMINATION: GENERAL: Well-appearing, well-nourished and in no acute distress. HEAD: Atraumatic, normocephalic. EYES: Pupils equal round and reactive to light, extraocular movements intact, sclera anicteric, conjunctiva are normal. ENT: Nares patent, oropharynx clear without exudates. Moist mucous membranes. NECK: Normal range of motion, supple without lymphadenopathy LUNGS: Breath sounds clear to auscultation bilaterally and equal. No wheezes rales or rhonchi. HEART: Regular rate and rhythm without murmurs ABDOMEN: Soft, nontender, nondistended abdomen. No guarding, no rebound. No masses appreciated. Musculoskeletal: Normal range of motion, no pitting or edema. No cyanosis. Tenderness to palpation in the lumbar and thoracic region, no vertebral tenderness, step-off or deformity. NEUROLOGICAL: Cranial nerves grossly intact. Normal speech, normal gait. Normal sensory, motor exams PSYCH: Normal mood, normal affect. SKIN: Warm, Dry, normal turgor, no rashes or lesions noted. - INFECTION CONTROL TRAVEL OUTSIDE OF THE [place] IN LAST 30 DAYS: No Course - Re-evaluation Re-evalutation: Patient appears well, nontoxic, likely acute on chronic back pain. He has not had imaging done in quite some time, he states his back pain is worse than usual. CT images will be obtained. CT is unremarkable of the lumbar and thoracic spine. Patient does report some relief of his symptoms after administration of medications in the emergency department. He does have an appointment coming up with his neurologist this Friday. He was encouraged to keep that appointment. Patient verbalizes understanding and agreement with plan. - Vital Signs Vital signs: Temp Pulse Resp BP Pulse Ox 98.1 F 66 16 150/99 H 100 03/08/20 04:56 03/08/20 04:56 03/08/20 04:56 03/08/20 04:56 03/08/20 04:56 - Laboratory Laboratory results interpreted by me: 03/08/20 03:00 Urine Blood SMALL H Discharge - Discharge Clinical Impression: Back pain Qualifiers: Back pain location: back pain in unspecified location Chronicity: chronic Back pain laterality: bilateral Qualified Code(s): M54.9 - Dorsalgia, unspecified; G89.29 - Other chronic pain Condition: Stable Disposition: HOME, SELF-CARE Additional Instructions: Please take medication as prescribed. It should not be a problem to take this with the other medications that you are currently taking. Please keep the follow-up appointment you have with your doctor for Friday. Take the copy of the CAT scan results to him for his review. Return to the emergency department with any new or worsening symptoms to include development of bowel or urinary incontinence, urinary retention, development of fever or any other concerning symptom, were happy to reevaluate you at any time. Prescriptions: Cyclobenzaprine HCl [Flexeril 10 mg Tablet] 10 mg PO TIDP PRN #20 tab PRN Reason: Referrals: [facility] [Primary [facility]] - Follow up as needed
== END 2020-03-08 05:09 | disposition home or self-care (01) ==
LOC: ER 00:25
DX: M54.9 Dorsalgia, unspecified (principal); G89.29 Other chronic pain; R10.9 Unspecified abdominal pain; M54.5 Low back pain; M54.6 Pain in thoracic spine; I10 Essential (primary) hypertension; E11.9 Type 2 diabetes mellitus without complications
CPT/HCPCS: 99284; 96372; 81001; 72128; 72131; J1885; J3490

== ENCOUNTER → 2020-04-18 | Outpatient (CLI) | payer OTHER ==
--- NOTE | 2020-04-18 15:23 | RADIOLOGY REPORT (SQ) ---
EXAM DESCRIPTION: PET CT SKULL/THIGH IMAGES COMPLETED DATE/TIME: 04/18/2020 1:56 pm REASON FOR STUDY: LOWER EXTREMITIES PROGRESSING WEAKNESS, HISTORY OF RENAL CANCER COMPARISON: None. RADIONUCLIDE AND DOSE: 11.4 mCi F18 FDG The route of agent administration: Intravenous FASTING BLOOD SUGAR: 150 mg/dl CONTRAST TYPE AND DOSE: No CT contrast given. TECHNIQUE: Blood glucose level was verified. Above dose of FDG was injected intravenously. 2-D seg mented attenuation correction images were obtained from the base of the skull to the midthighs. Nonc ontrast CT images were obtained for attenuation correction and fusion with emission images. CT image s were performed without oral or intravenous contrast and are not sensitive for parenchymal lesions. A series of overlapping emission PET images were obtained. Images reviewed and manipulated at [facility] work station by the radiologist. Images stored on PACS. LIMITATIONS: None. FINDINGS: HEAD AND NECK: Minimal uptake within known enlarged right thyroid 2.0 SUV. CHEST: No areas of abnormal metabolic activity in the chest. ABDOMEN AND PELVIS: No areas of abnormal metabolic activity in the abdomen or pelvis. Expected physi ologic activity is present in the genitourinary system and bowel. PROXIMAL LOWER EXTREMITIES: No areas of abnormal metabolic activity in the soft tissues of the lower extremities. BONES: No abnormal metabolic activity in the visualized skeleton. ADDITIONAL CT FINDINGS: Nonobstructing right renal calculus. Unchanged appearance of enlarged right lobe and thyroid nodules. OTHER: Blood pool 2.0 SUV. Liver background 2.9 SUV. IMPRESSION: No evidence of hypermetabolic mass. COMMENT: Scanning was obtained to the level of the knees. TECHNICAL DOCUMENTATION: JOB ID: [id number] [employer]- All Rights Reserved Reading location - IP/workstation name: [email or web address]
== END ==
LOC: RAD 08:39
PROVIDERS: ATTEND Family Medicine
DX: C64.9 Malignant neoplasm of unspecified kidney, except renal pelvis (principal)
CPT/HCPCS: 78815; A9552